=== PATIENT | male | born 1995 | race Caucasian/White ===

== ENCOUNTER 2022-03-20 21:21 | Inpatient (IN) | payer OTHER, SELFPAY ==
--- NOTE | ~2022-03-20 | CT_ITS ---
EXAMINATION: CT ABDOMEN AND PELVIS WITH CONTRAST CLINICAL INFORMATION: Abdominal pain while lifting weights COMPARISON: None TECHNIQUE: Multidetector volumetric images were obtained from the superior aspect of the liver through the pubic symphysis following administration 85 mL of Omnipaque 350 intravenous contrast. Sagittal and coronal reformatted images were obtained on the technologist's workstation. Oral contrast: No This CT examination was performed using dose optimization techniques as appropriate, variously including the following: *Automated exposure control *Adjustment of mA and/or kV according to patient size (this includes techniques or standardized protocols for targeted exams where dose is matched to indication/reason for exam; i.e. extremities or head) *Use of iterative reconstruction technique DLP: 772 mGy-cm FINDINGS: LUNG BASES: The visualized lung bases are unremarkable. LIVER, GALLBLADDER, AND BILIARY TREE: The liver is normal in size, shape, and attenuation. No focal hepatic lesion or biliary ductal dilatation is present. Gallbladder unremarkable. PANCREAS: Unremarkable. SPLEEN: Unremarkable. ADRENAL GLANDS: Unremarkable. KIDNEYS AND URETERS: The kidneys are normal in size, shape, and attenuation. No hydronephrosis, hydroureter, or calculi seen. Simple cyst in the left kidney is benign and requires no follow-up. No perinephric stranding. BLADDER: Unremarkable. GASTROINTESTINAL TRACT: Appendix is distended to 1.1 cm, thick-walled and hyperemic with associated periappendiceal fat stranding. Appendix is located medial to the cecum within the right lower quadrant. Remainder of the gastrointestinal tract unremarkable. ABDOMINAL WALL: No significant hernia is appreciated. LYMPH NODES: Normal. VASCULAR: Unremarkable. PELVIC VISCERA: Trace pelvic free fluid is reactive. OSSEOUS STRUCTURES: Unremarkable. CT/CT abdomen pelvis w con IMPRESSION: Acute uncomplicated appendicitis.
--- NOTE | ~2022-03-20 | CT_ITS ---
EXAMINATION: CT ANGIOGRAM ABDOMEN AND PELVIS CLINICAL INFORMATION: Sudden onset abdominal pain while lifting weights. COMPARISON: None TECHNIQUE: Multiple axial images were obtained through the abdomen and pelvis following the administration of 85 mL of Omnipaque 350 intravenous contrast. Images were reviewed on a dedicated 3-D workstation. This CT examination was performed using dose optimization techniques as appropriate, variously including the following: *Automated exposure control *Adjustment of mA and/or kV according to patient size (this includes techniques or standardized protocols for targeted exams where dose is matched to indication/reason for exam; i.e. extremities or head) *Use of iterative reconstruction technique DLP: 772 mGy-cm FINDINGS: VASCULAR: Normal caliber aorta. No aortic dissection or aneurysm. LUNG BASES: The visualized lung bases are unremarkable. LIVER, GALLBLADDER, AND BILIARY TREE: The liver is normal in size, shape, and attenuation. No focal hepatic lesion or biliary ductal dilatation is present. Gallbladder unremarkable. PANCREAS: Unremarkable. SPLEEN: Unremarkable. ADRENAL GLANDS: Unremarkable. KIDNEYS AND URETERS: The kidneys are normal in size, shape, and attenuation. No hydronephrosis, hydroureter, or calculi seen. Simple cyst in the left kidney is benign and requires no follow-up. No perinephric stranding. BLADDER: Unremarkable. GASTROINTESTINAL TRACT: Appendix is distended to 1.1 cm, thick-walled and hyperemic with associated periappendiceal fat stranding. Appendix is located medial to the cecum within the right lower quadrant. Remainder of the gastrointestinal tract unremarkable. ABDOMINAL WALL: No significant hernia is appreciated. LYMPH NODES: Normal. VASCULAR: Unremarkable. PELVIC VISCERA: Trace pelvic free fluid is reactive. OSSEOUS STRUCTURES: Unremarkable. CT/CT angio abdomen pelvis IMPRESSION: Acute uncomplicated appendicitis. No aortic aneurysm or dissection.
[2022-03-20 21:33] VITALS: BP 140/79; PULSE 83; RESP 18; TEMP 37.2; O2SAT 98; BMI 25.0
--- NOTE | 2022-03-20 21:36 | ECG_ITS ---
Test Reason : CHEST PAIN Blood Pressure : / mmHG Vent. Rate : 080 BPM Atrial Rate : 080 BPM P-R Int : 150 ms QRS Dur : 078 ms QT Int : 348 ms P-R-T Axes : 049 017 035 degrees QTc Int : 401 ms Normal sinus rhythm Normal ECG No previous ECGs available Referred By: Generic ED Physician Electronically Signed By:LAMINE OLSON
[2022-03-20 21:44] LABS: MANUAL DIFF FLAG NO
[2022-03-20 21:46] LABS: Basophils Percent Auto 0.2 % (0-2); Eosinophils Absolute Auto 0.2 X10*3/uL (0.0-0.4); Eosinophils Percent Auto 1.5 % (0-4); Hematocrit 44.7 % (42.0-52.0); Hemoglobin 14.8 g/dl (14.0-18.0); Imm Gran Abs Auto 0.03 X10*3/uL (0.00-0.03); Imm Gran Pct Auto 0.3 % (0.0-0.4); Lymphocytes Absolute Auto 1.6 X10*3/uL (1.2-4.9); Lymphocytes Percent Auto 15.4 % (20-40); Mean Corpuscular HGB Conc 33.1 g/dl (31.0-36.0); Mean Corpuscular Volume 84.5 fL (80.0-98.0); Mean Platelet Volume 9.6 fL (9.4-12.4); Monocytes Absolute Auto 0.7 X10*3/uL (0.1-1.2); Monocytes Percent Auto 6.7 % (2-11); Neutrophils Absolute Auto 8.1 x10*3/uL (2.0-8.3); Neutrophils Percent Auto 75.9 % (45-73); Platelet Count 245 X10*3/uL (160-400); Red Blood Count 5.29 X10*6/uL (4.60-5.80); Red Cell Distribution Width 13.2 % (11.0-16.0); White Blood Count 10.7 X10*3/uL (4.8-10.8)
[2022-03-20 22:02] LABS: Alanine Aminotransferase 39 U/L (0-40); Albumin Level 4.9 g/dL (3.5-5.0); Alkaline Phosphatase 95 U/L (39-117); Anion Gap 17 (12-20); Aspartate Amino Transferase 50 U/L (5-37); Bilirubin Direct 0.5 mg/dL (0.0-0.5); Bilirubin Total 1.3 mg/dL (0.0-1.0); Blood Urea Nitrogen 19 mg/dL (9-16); Carbon Dioxide 26 mmol/L (22-29); Chloride 103 mmol/L (96-108); Creatinine Clr Calc Pharmacy 93.2; Estimated Glomerular Filt Rate > 60; Glucose Random 112 mg/dL (60-115); Lipase 18 U/L (8-78); Potassium 3.7 mmol/L (3.3-5.1); Sodium 142 mmol/L (135-145); Total Protein 7.5 g/dL (6.5-8.0)
[2022-03-20 22:06] LABS: COVID-19 Test Negative (Negative); Troponin-I High Sensitivity 3.5 ng/L (<3.5-35.0)
[2022-03-21] VITALS (18 sets, daily range): BP systolic 100–139; BP diastolic 46–81; PULSE 60–89; RESP 9–24; TEMP 36.3–37.1; O2SAT 94–98
--- NOTE | 2022-03-21 00:20 | ED_ITS ---
HPI - Abdominal Pain General Chief Complaint: Abdominal Pain <Sandra Reno NP - Last Filed: 03/21/22 02:19> Stated Complaint: severe right sided abd pain <Sandra Reno NP - Last Filed: 03/21/22 02:19> Time Seen by Provider: 03/20/22 21:32 <Sandra Reno NP - Last Filed: 03/21/22 02:19> Source: patient <Sandra Reno NP - Last Filed: 03/21/22 02:19> Mode of arrival: ambulatory <Sandra Reno NP - Last Filed: 03/21/22 02:19> Limitations: no limitations <Sandra Reno NP - Last Filed: 03/21/22 02:19> History of Present Illness HPI narrative: 26-year-old male presents with a severe rapid onset of right lower quadrant abdominal pain that radiated to his back and rectum while lifting heavy weights. The pain still persists and it is preventing him from moving properly. He does not report any prior history of abdominal surgery, and denies chest pain or pressure, palpitations, shortness of breath, dizziness, weakness, abdominal distention, dysuria, lightheadedness, or fatigue. <Sandra Reno NP - Last Filed: 03/21/22 02:19> MD elicited complaint: abdominal pain <Sandra Reno NP - Last Filed: 03/21/22 02:19> Pertinent past history: none <Sandra Reno NP - Last Filed: 03/21/22 02:19> Onset (ago): hour(s) (Within the hour of arrival) <Sandra Reno NP - Last Filed: 03/21/22 02:19> Pain Consistency: constant <Sandra Reno NP - Last Filed: 03/21/22 02:19> Location: RLQ and suprapubic <Sandra Reno NP - Last Filed: 03/21/22 02:19> Severity: severe <Sandra Reno NP - Last Filed: 03/21/22 02:19> Pain scale (0-10): 8 <Sandra Reno NP - Last Filed: 03/21/22 02:19> Quality: aching <Sandra Reno NP - Last Filed: 03/21/22 02:19> Radiation: back and other (Rectum) <Sandra Reno NP - Last Filed: 03/21/22 02:19> Migration to: no migration <Sandra Reno NP - Last Filed: 03/21/22 02:19> Exacerbating factors: movement and other (Palpation) <Sandra Reno NP - Last Filed: 03/21/22 02:19> Relieving factors: nothing <Sandra Reno NP - Last Filed: 03/21/22 02:19> Associated symptoms: denies other symptoms <Sandra Reno NP - Last Filed: 03/21/22 02:19> Related Data Allergies/Adverse Reactions: Allergies Allergy/AdvReac Type Severity Reaction Status Date / Time carrot Allergy Itching Verified 03/20/22 21:33 pineapple Allergy Itching Verified 03/20/22 21:33 soy Allergy Itching Verified 03/20/22 21:33 strawberry Allergy Itching Verified 03/20/22 21:33 <Sandra Reno NP - Last Filed: 03/21/22 02:19> Review of Systems Review of Systems Constitutional: No Fever, No Chills ENT/Mouth: No Ear Pain, No Hoarseness, No sore throat Eyes: No Eye Pain, No Swelling, No Redness, No Foreign Body Cardiovascular: No Chest Pain, No SOB Respiratory: No Cough, No Dyspnea Gastrointestinal: No Nausea, No Vomiting, No Diarrhea, positive right lower quadrant abdominal Pain Genitourinary: No Dysuria, No Hematuria Musculoskeletal: No joint pain, No Myalgias, No Joint Swelling Skin: No Skin lacerations, No rash Neuro: No Weakness, No Numbness, No Paresthesias, No Loss of Consciousness, No Dizziness, No Headache Psych: No Anxiety/Panic, No Depression Heme/Lymph: no easy bruising, no Lymphadenopathy Endocrine: No Polyuria, No Polydipsia <Sandra Reno NP - Last Filed: 03/21/22 02:19> Yes all other systems are reviewed and are negative <TIA Adam Last Filed: 03/21/22 02:19> [facility] Past Medical History Attestation statement: The following information was validated with the patient. <Sandra Reno NP - Last Filed: 03/21/22 02:19> Source: old records reviewed <Sandra Reno NP - Last Filed: 03/21/22 02:19> Social History Social History: Social History Advance Directives: No Advance Directives Information Provided: No <Sandra Reno NP - Last Filed: 03/21/22 02:19> Physical Exam ED Vital Signs: Vital Signs - 24 hr 03/20/22 21:33 03/21/22 00:20 03/21/22 01:45 Temperature 98.9 F Pulse Rate 83 89 82 Respiratory Rate 18 19 24 H Blood Pressure 140/79 H 139/81 125/64 Pulse Oximetry 98 96 Oxygen Delivery Method Room Air Room Air BMI result Body Mass Index 25.0 <Sandra Reno NP - Last Filed: 03/21/22 02:19> Vital Signs - 24 hr 03/20/22 21:33 03/21/22 00:20 03/21/22 01:45 Temperature 98.9 F Pulse Rate 83 89 82 Respiratory Rate 18 19 24 H Blood Pressure 140/79 H 139/81 125/64 Pulse Oximetry 98 96 Oxygen Delivery Method Room Air Room Air BMI result Body Mass Index 25.0 <Laith Camarillo MD - Last Filed: 03/21/22 03:59> Appearance: Alert. Oriented X3. Moderate distress. Eyes: Pupils equal, round and reactive to light. EOMI. Sclera nonicteric. ENT: Pharynx normal. Moist mucous membranes. Neck: Normal inspection. Neck supple. CVS: Normal heart rate and rhythm. Pulses normal. Respiratory: No respiratory distress. Breath sounds normal. Abdomen: Soft and tender to right lower quadrant and suprapubic. No distention or rigidity. Skin: Skin warm and dry. Normal skin color. Normal skin turgor. Extremities: Gait well-balanced well coordinated. Neuro: No motor deficit. No sensory deficit. Cranial nerves 2-12 intact. <Sandra Reno NP - Last Filed: 03/21/22 02:19> Course Course Course Narrative: 26-year-old male presents with sudden onset of severe right lower quadrant pain radiating to his back and rectum while lifting weights. He does not have a history of prior abdominal surgeries, no family history of sudden cardiac or aneurysms. Severe tenderness noted to palpation to the right lower quadrant, and suprapubic. No rigidity or distention. Patient has sensation to all extremities no indication of cauda equina. Will order CT angio of abdomen and pelvis to rule out aneurysm, rupture, acute abdomen, intra-abdominal hematoma. Will give morphine and Zofran for pain management. Patient is visibly unco mfortable. Afebrile. Alert oriented x4. 02:14 there is a delay for the CT scan read. Sign-out to Dr. Camarillo. <Sandra Reno NP - Last Filed: 03/21/22 02:19> MDM - Abdominal Pain MDM Narrative Medical decision making narrative: Patient with right lower quadrant abdominal pain. Pain was of sudden onset and very severe. CT the abdomen pelvis shows acute appendicitis. [facility] had ordered a CTA based upon a acute onset of the pain during heavy lif ting and this was negative for any vascular abnormality. Patient was started on Zosyn 4.5 g IV and the case was discussed with Dr. Mcfadden general surgery, who is admitting the patient <Laith Camarillo MD - Last Filed: 03/21/22 03:59> Differential Diagnosis Differential diagnosis: Likely abdominal pain, aortic dissection, acute appendicitis, bowel perforation and pancreatitis <Sandra Reno NP - Last Filed: 03/21/22 02:19> Differential diagnosis narrative:: AAA, rupture <Sandra Reno NP - Last Filed: 03/21/22 02:19> Medical Records Attestation: I reviewed the patient's medical records. <Sanrda Reno NP - Last Filed: 03/21/22 02:19> Lab Data Attestation: I reviewed the patient's lab results. <Sandra Reno NP - Last Filed: 03/21/22 02:19> Result diagrams: : 03/20/22 21:40 03/20/22 21:40 <Sandra Reno NP - Last Filed: 03/21/22 02:19> Labs: Lab Results 03/20/22 03/20/22 03/20/22 Range/Units 21:40 21:40 21:40 WBC 10.7 (4.8-10.8) X10*3/uL RBC 5.29 (4.60-5.80) X10*6/uL Hgb 14.8 (14.0-18.0) g/dl Hct 44.7 (42.0-52.0) % MCV 84.5 (80.0-98.0) fL MCH 28.0 (27.0-33.0) pg MCHC 33.1 (31.0-36.0) g/dl RDW 13.2 (11.0-16.0) % Plt Count 245 (160-400) X10*3/uL MPV 9.6 (9.4-12.4) fL Immature Gran % (Auto) 0.3 (0.0-0.4) % Neut % (Auto) 75.9 H (45-73) % Lymph % (Auto) 15.4 L (20-40) % [place] % (Auto) 6.7 (2-11) % Eos % (Auto) 1.5 (0-4) % Baso % (Auto) 0.2 (0-2) % Lymph # (Auto) 1.6 (1.2-4.9) X10*3/uL [place] # (Auto) 0.7 (0.1-1.2) X10*3/uL Eos # (Auto) 0.2 (0.0-0.4) X10*3/uL Baso # (Auto) 0.0 (0.0-0.2) X10*3/uL Abs Immat Gran (auto) 0.03 (0.00-0.03) X10*3/uL Absolute Neuts (auto) 8.1 (2.0-8.3) x10*3/uL Absolute Nucleated RBC 0.000 (0.0-0.012) X10*3/uL Nucleated RBC % (auto) 0.0 (0.0-0.2) /100WBC Sodium 142 (135-145) mmol/L Potassium 3.7 (3.3-5.1) mmol/L Chloride 103 (96-108) mmol/L Carbon Dioxide 26 (22-29) mmol/L Anion Gap 17 (12-20) BUN 19 H (9-16) mg/dL Creatinine 1.24 (0.5-1.4) mg/dL Estim Creat Clear Calc 93.2 Estimated GFR > 60 Random Glucose 112 (60-115) mg/dL Calcium 10.0 (8.4-10.2) mg/dL Total Bilirubin 1.3 H (0.0-1.0) mg/dL Direct Bilirubin 0.5 (0.0-0.5) mg/dL AST 50 H (5-37) U/L ALT 39 (0-40) U/L Alkaline Phosphatase 95 (39-117) U/L Troponin I High Sens 3.5 (<3.5-35.0) ng/L Total Protein 7.5 (6.5-8.0) g/dL Albumin 4.9 (3.5-5.0) g/dL Lipase 18 (8-78) U/L Urine Color Urine Appearance Urine pH (5.0-8.0) Ur Specific [place] (1.005-1.025) Urine Protein (Neg-Trace) mg/dL Urine Glucose (UA) (Negative) mg/dL Urine Ketones (Negative) mg/dL Urine Blood (Negative) Urine Nitrite (Negative) Ur Leukocyte Esterase (Negative) COVID-19 (UZMA) (Negative) COVID-19 Clin Com 03/20/22 03/21/22 Range/Units 21:40 01:53 WBC (4.8-10.8) X10*3/uL RBC (4.60-5.80) X10*6/uL Hgb (14.0-18.0) g/dl Hct (42.0-52.0) % MCV (80.0-98.0) fL MCH (27.0-33.0) pg MCHC (31.0-36.0) g/dl RDW (11.0-16.0) % Plt Count (160-400) X10*3/uL MPV (9.4-12.4) fL Immature Gran % (Auto) (0.0-0.4) % Neut % (Auto) (45-73) % Lymph % (Auto) (20-40) % [place] % (Auto) (2-11) % Eos % (Auto) (0-4) % Baso % (Auto) (0-2) % Lymph # (Auto) (1.2-4.9) X10*3/uL [place] # (Auto) (0.1-1.2) X10*3/uL Eos # (Auto) (0.0-0.4) X10*3/uL Baso # (Auto) (0.0-0.2) X10*3/uL Abs Immat Gran (auto) (0.00-0.03) X10*3/uL Absolute Neuts (auto) (2.0-8.3) x10*3/uL Absolute Nucleated RBC (0.0-0.012) X10*3/uL Nucleated RBC % (auto) (0.0-0.2) /100WBC Sodium (135-145) mmol/L Potassium (3.3-5.1) mmol/L Chloride (96-108) mmol/L Carbon Dioxide (22-29) mmol/L Anion Gap (12-20) BUN (9-16) mg/dL Creatinine (0.5-1.4) mg/dL Estim Creat Clear Calc Estimated GFR Random Glucose (60-115) mg/dL Calcium (8.4-10.2) mg/dL Total Bilirubin (0.0-1.0) mg/dL Direct Bilirubin (0.0-0.5) mg/dL AST (5-37) U/L ALT (0-40) U/L Alkaline Phosphatase (39-117) U/L Troponin I High Sens (<3.5-35.0) ng/L Total Protein (6.5-8.0) g/dL Albumin (3.5-5.0) g/dL Lipase (8-78) U/L Urine Color Yellow Urine Appearance Clear Urine pH 5.5 (5.0-8.0) Ur Specific [place] >= 1.030 H (1.005-1.025) Urine Protein Negative (Neg-Trace) mg/dL Urine Glucose (UA) Negative (Negative) mg/dL Urine Ketones Trace (Negative) mg/dL Urine Blood Negative (Negative) Urine Nitrite Negative (Negative) Ur Leukocyte Esterase Negative (Negative) COVID-19 (UZMA) Negative (Negative) COVID-19 Clin Com See Note <Sandra Reno NP - Last Filed: 03/21/22 02:19> Lab Results 0803/20/22 03/20/22 Range/Units 21:40 21:40 21:40 WBC 10.7 (4.8-10.8) X10*3/uL RBC 5.29 (4.60-5.80) X10*6/uL Hgb 14.8 (14.0-18.0) g/dl Hct 44.7 (42.0-52.0) % MCV 84.5 (80.0-98.0) fL MCH 28.0 (27.0-33.0) pg MCHC 33.1 (31.0-36.0) g/dl RDW 13.2 (11.0-16.0) % Plt Count 245 (160-400) X10*3/uL MPV 9.6 (9.4-12.4) fL Immature Gran % (Auto) 0.3 (0.0-0.4) % Neut % (Auto) 75.9 H (45-73) % Lymph % (Auto) 15.4 L (20-40) % [place] % (Auto) 6.7 (2-11) % Eos % (Auto) 1.5 (0-4) % Baso % (Auto) 0.2 (0-2) % Lymph # (Auto) 1.6 (1.2-4.9) X10*3/uL [place] # (Auto) 0.7 (0.1-1.2) X10*3/uL Eos # (Auto) 0.2 (0.0-0.4) X10*3/uL Baso # (Auto) 0.0 (0.0-0.2) X10*3/uL Abs Immat Gran (auto) 0.03 (0.00-0.03) X10*3/uL Absolute Neuts (auto) 8.1 (2.0-8.3) x10*3/uL Absolute Nucleated RBC 0.000 (0.0-0.012) X10*3/uL Nucleated RBC % (auto) 0.0 (0.0-0.2) /100WBC Sodium 142 (135-145) mmol/L Potassium 3.7 (3.3-5.1) mmol/L Chloride 103 (96-108) mmol/L Carbon Dioxide 26 (22-29) mmol/L Anion Gap 17 (12-20) BUN 19 H (9-16) mg/dL Creatinine 1.24 (0.5-1.4) mg/dL Estim Creat Clear Calc 93.2 Estimated GFR > 60 Random Glucose 112 (60-115) mg/dL Calcium 10.0 (8.4-10.2) mg/dL Total Bilirubin 1.3 H (0.0-1.0) mg/dL Direct Bilirubin 0.5 (0.0-0.5) mg/dL AST 50 H (5-37) U/L ALT 39 (0-40) U/L Alkaline Phosphatase 95 (39-117) U/L Troponin I High Sens 3.5 (<3.5-35.0) ng/L Total Protein 7.5 (6.5-8.0) g/dL Albumin 4.9 (3.5-5.0) g/dL Lipase 18 (8-78) U/L Urine Color Urine Appearance Urine pH (5.0-8.0) Ur Specific [place] (1.005-1.025) Urine Protein (Neg-Trace) mg/dL Urine Glucose (UA) (Negative) mg/dL Urine Ketones (Negative) mg/dL Urine Blood (Negative) Urine Nitrite (Negative) Ur Leukocyte Esterase (Negative) COVID-19 (UZMA) (Negative) COVID-19 Clin Com 03/20/22 03/21/22 Range/Units 21:40 01:53 WBC (4.8-10.8) X10*3/uL RBC (4.60-5.80) X10*6/uL Hgb (14.0-18.0) g/dl Hct (42.0-52.0) % MCV (80.0-98.0) fL MCH (27.0-33.0) pg MCHC (31.0-36.0) g/dl RDW (11.0-16.0) % Plt Count (160-400) X10*3/uL MPV (9.4-12.4) fL Immature Gran % (Auto) (0.0-0.4) % Neut % (Auto) (45-73) % Lymph % (Auto) (20-40) % [place] % (Auto) (2-11) % Eos % (Auto) (0-4) % Baso % (Auto) (0-2) % Lymph # (Auto) (1.2-4.9) X10*3/uL [place] # (Auto) (0.1-1.2) X10*3/uL Eos # (Auto) (0.0-0.4) X10*3/uL Baso # (Auto) (0.0-0.2) X10*3/uL Abs Immat Gran (auto) (0.00-0.03) X10*3/uL Absolute Neuts (auto) (2.0-8.3) x10*3/uL Absolute Nucleated RBC (0.0-0.012) X10*3/uL Nucleated RBC % (auto) (0.0-0.2) /100WBC Sodium (135-145) mmol/L Potassium (3.3-5.1) mmol/L Chloride (96-108) mmol/L Carbon Dioxide (22-29) mmol/L Anion Gap (12-20) BUN (9-16) mg/dL Creatinine (0.5-1.4) mg/dL Estim Creat Clear Calc Estimated GFR Random Glucose (60-115) mg/dL Calcium (8.4-10.2) mg/dL Total Bilirubin (0.0-1.0) mg/dL Direct Bilirubin (0.0-0.5) mg/dL AST (5-37) U/L ALT (0-40) U/L Alkaline Phosphatase (39-117) U/L Troponin I High Sens (<3.5-35.0) ng/L Total Protein (6.5-8.0) g/dL Albumin (3.5-5.0) g/dL Lipase (8-78) U/L Urine Color Yellow Urine Appearance Clear Urine pH 5.5 (5.0-8.0) Ur Specific [place] >= 1.030 H (1.005-1.025) Urine Protein Negative (Neg-Trace) mg/dL Urine Glucose (UA) Negative (Negative) mg/dL Urine Ketones Trace (Negative) mg/dL Urine Blood Negative (Negative) Urine Nitrite Negative (Negative) Ur Leukocyte Esterase Negative (Negative) COVID-19 (UZMA) Negative (Negative) COVID-19 Clin Com See Note <Laith Camarillo MD - Last Filed: 03/21/22 03:59> Imaging Data CT angio abdomen pelvis: Radiologist's impression: MPRESSION: Acute uncomplicated appendicitis. No aortic aneurysm or dissection. <Laith Camarillo MD - Last Filed: 03/21/22 03:59> CT abdomen and pelvis: Radiologist's impression: IMPRESSION: Acute uncomplicated appendicitis. <Laith Camarillo MD - Last Filed: 03/21/22 03:59> Discharge Plan Discharge Clinical Impression: Abdominal pain, Acute appendicitis <Sandra Reno NP - Last Filed: 03/21/22 02:19> Patient Disposition: Still a Patient <Sandra Reno NP - Last Filed: 03/21/22 02:19>
[2022-03-21] MEDS: Morphine Sulfate 4 MG/ML CARTRIDGE IVPUSH (00:48)
[2022-03-21] MEDS: ondansetron HCL 4 MG/2 ML VIAL IVPUSH ×2 (00:48→04:20)
[2022-03-21] MEDS: iohexoL 350 MG/ML 100 ML INFUS..BTL IV (01:41)
[2022-03-21 02:06] LABS: Appearance Urine Clear; Color Urine Yellow; Glucose Urine UA Negative (Negative); Leukocyte Esterase Urine Negative (Negative); Nitrite Urine Negative (Negative); PH 5.5 (5.0-8.0); Specific Gravity - Urine >= 1.030 (1.005-1.025); Urine Blood Negative (Negative); Urine Ketones Trace mg/dL (Negative); Urine Protein Negative (Neg-Trace)
[2022-03-21] MEDS: Piperacillin Sodium/Tazobactam 4.5 GM in 0.9 % Sodium Chloride 100 ML IV (02:49)
[2022-03-21] MEDS: 0.9 % Sodium Chloride 1,000 ML 999 ML IV (02:50)
--- NOTE | 2022-03-21 03:57 | P.HPGS_ITS ---
History of Present Illness History of Present Illness Date of Service: 03/21/22 Chief complaint: Acute appendicitis Narrative: Sid Munoz is a 26 year old male presenting with complaints of abdominal pain in the right lower quadrant. The pain began while working out initially felt like a muscle pull. The pain was mainly in periumbilical location initially but over the next hour radiated to the right lower quadrant. The pain is not so bad while lying still but increases with movement or walking. He reports some nausea and anorexia but denies vomiting. He had a period of chills and sweats prior to coming to the emergency department. In the emergency department he was noted to be tender in the right lower quadrant. CT abdomen and pelvis as well as angio CT was significant for acute appendicitis without perforation. Laboratories revealed normal WBC. He is admitted to the surgical service for management of his acute appendicitis. Review of Systems Review of Systems: Yes all other systems are reviewed and are negative Constitutional: Constitutional: Denies chills, Denies fever(s), Denies headache(s), Denies poor appetite and Denies weakness ENT: Denies headache(s) Cardiovascular: Cardiovascular: Denies chest pain, Denies irregular heart rhythm, Denies palpitations and Denies dyspnea Respiratory: Respiratory: Denies cough, Denies excessive phlegm production and Denies dyspnea Gastrointestinal: Gastrointestinal: Reports abdominal pain, Denies bloating, Denies change in bowel habits, Denies constipation, Denies heartburn, Denies diarrhea, Denies nausea and Denies vomiting Genitourinary: Genitourinary: Denies difficulty urinating and Denies urinary frequency Musculoskeletal: Musculoskeletal: Denies back pain, Denies muscle weakness and Denies numbness Integumentary/Breasts: Skin/Breast: Denies changing lesions and Denies unusual bruising Neurologic: Denies headache(s), Denies numbness, Denies paresthesias and Denies weakness Psychiatric: Psychiatric: Denies anxiety and Denies depression Endocrine: Endocrine: Denies palpitations Hematologic/Lymphatic: Hematologic/Lymphatic: Denies lymphadenopathy FOR[facility]LY [facility] Social History Social History Advance Directives: No Advance Directives Information Provided: No Meds Allergies Allergy/AdvReac Type Severity Reaction Status Date / Time carrot Allergy Itching Verified 03/20/22 21:33 pineapple Allergy Itching Verified 03/20/22 21:33 soy Allergy Itching Verified 03/20/22 21:33 strawberry Allergy Itching Verified 03/20/22 21:33 Active Medications: Current Medications Acetaminophen (Acetaminophen 325 Mg Tablet) 650 mg PO Q6H PRN PRN Reason: Pain, Mild (Pain Scale 1-3) Hydromorphone HCl (Hydromorphone Hcl 1 Mg/Ml Syringe) 0.5 mg IVPUSH Q4H PRN; Protocol PRN Reason: Pain, Severe (Pain Scale 7-10) Dextrose/Lactated Ringer's (D5lr) 1,000 mls @ 125 mls/hr IVCONT .Q8H RADHA Piperacillin Sod/Tazobactam (Sod 3.375 gm/ Sodium Chloride) 50 mls @ 100 mls/hr IV Q6H RADHA Ondansetron HCl (Ondansetron Hcl 4 Mg/2 Ml Vial) 4 mg IVPUSH QID PRN PRN Reason: Nausea Oxycodone HCl (Oxycodone Hcl Immed Release 5 Mg Tablet) 5 mg PO Q6H PRN PRN Reason: Pain, Moderate (Pain Scale 4-6 Sodium Chloride (0.9 % Sodium Chloride Flush 3 Ml Syringe) 3 ml IVFLUSH QSHIFT RADHA Zolpidem Tartrate (Zolpidem Tartrate 5 Mg Tablet) 5 mg PO BEDTIME PRN PRN Reason: Insomnia Physical Exam Vital Signs: Vital Signs: Last Vital Signs Temp 98.9 F 03/20/22 21:33 Pulse 82 03/21/22 01:45 Resp 24 H 03/21/22 01:45 BP 125/64 03/21/22 01:45 Pulse Ox 96 03/21/22 00:20 O2 Del Method 03/21/22 01:45 BMI result Body Mass Index 25.0 Const: General: cooperative and no acute distress Nutritional Appearance: well nourished Orientation/consciousness: patient oriented x3 Limitations: no limitations HEENT: Head: Yes normocephalic and Yes atraumatic Ears: hearing grossly normal bilaterally Resp: Effort & Inspection: normal respiratory effort, no audible wheezes, no cough and no respiratory distress Cardio: Jugular venous distension: no JVD GI: Inspection: Yes normal to inspection Palpation (GI): Soft to palpation, Tenderness to palpation present (GI) in the RLQ, at McBurney's point, with rebound tenderness and Rovsing's sign positive, no guarding and not rigid Percussion: Yes normal to percussion Auscultation: normal bowel sounds Rectal Exam - Male: Yes deferred Skin: Other: Warm, dry, no rash Neuro: General: patient oriented x3 Extrem: General: Yes no clubbing, cyanosis or edema Results Results Labs: Short CBC 03/20/22 Range/Units 21:40 WBC 10.7 (4.8-10.8) X10*3/uL Hgb 14.8 (14.0-18.0) g/dl Hct 44.7 (42.0-52.0) % Plt Count 245 (160-400) X10*3/uL BMP 03/20/22 21:40 Sodium 142 Potassium 3.7 Chloride 103 Carbon Dioxide 26 BUN 19 H Creatinine 1.24 Calcium 10.0 Liver Function 03/20/22 Range/Units 21:40 Total Bilirubin 1.3 H (0.0-1.0) mg/dL Direct Bilirubin 0.5 (0.0-0.5) mg/dL AST 50 H (5-37) U/L ALT 39 (0-40) U/L Alkaline Phosphatase 95 (39-117) U/L Albumin 4.9 (3.5-5.0) g/dL Urine 03/21/22 Range/Units 01:53 Urine Color Yellow Urine Appearance Clear Urine pH 5.5 (5.0-8.0) Ur Specific [place] >= 1.030 H (1.005-1.025) Urine Protein Negative (Neg-Trace) mg/dL Urine Glucose (UA) Negative (Negative) mg/dL Assessment and Plan (1) Acute appendicitis: Status: Acute Plan 26-year-old male patient, previously healthy now presenting with acute onset of right lower quadrant abdominal pain found in the emergency department to have WBC however a CT which revealed thickened appendix suggestive of acute appendicitis. We discussed the options non operative management with IV antibiotics verses laparoscopic appendectomy. After discussion of the procedure, risks, and alternatives, he consents to a laparoscopic or possible open appendectomy. He has been added onto the operative schedule for later today. Quality Stroke Does the patient have a stroke diagnosis?: No VTE Prior VTE?: No VTE Risk Level:: Surgical - low VTE Device Contraindication: N/A - Device Ordered VTE Drug Contraindication: Treatment Not Indicated Procedures Date of Service Date of Service: 03/21/22
[2022-03-21] MEDS: 0.9 % Sodium Chloride Flush 3 ML SYRINGE IVFLUSH (04:15)
[2022-03-21] MEDS: Dextrose 5 % and Lactated Ring 1,000 ML 125 ML IVCONT ×3 (04:15→22:52)
[2022-03-21] MEDS: HYDROmorphone HCl 1 MG/ML SYRINGE 0.5 MG IVPUSH ×2 (04:20→08:52)
--- NOTE | 2022-03-21 07:24 | PC.NURSE ---
Handoff received. Pt ao x 4. Family member at bedside. States minimal pain at this time, 10/30. D5LR at 25ml/hr on r ac. Able to ambulate to the bathroom. Breathing is even and unlabored. Pt aware of plan of care.
--- NOTE | 2022-03-21 08:06 | PHA.MEDREC ---
Pharmacy Consult ? Medication Reconciliation Pharmacy has completed the medication reconciliation. Patient only takes OTC supplement and vitamin. Maricarmen Vinson, MelissaD
--- NOTE | 2022-03-21 08:10 | PC.NURSE ---
report given to sss
[2022-03-21] MEDS: Piperacillin Sodium/Tazobactam 3.375 GM in 0.9 % Sodium Chloride 50 ML IV ×3 (08:59→22:51)
[2022-03-21] MEDS: oxyCODONE HCl Immed Release 5 MG TABLET PO ×2 (10:42→22:49)
--- NOTE | 2022-03-21 11:40 | MHC.CM.PN ---
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
--- NOTE | 2022-03-21 13:54 | P.CONAN_ITS ---
HPI - Anesthesia Eval Consult details Narrative: Acute Appendicitis PMFSH Active Problems Active Problems: All Active Problems (Updated 03/21/22 @ 11:01 by Dana Kingsley RN) Abdominal pain (Acute) Acute appendicitis (Acute) Past Medical History Medical History Alopecia Psoriasis Family History Family history of problems with anesthesia: No Surgical History Surgical History History of ear surgery [place] teeth extracted History of Problems with Anesthesia: No Social History Social History Patient Tobacco Use Status: Never used Tobacco service: No Current occupational status: employed Meds Allergies Allergy/AdvReac Type Severity Reaction Status Date / Time carrot Allergy Itching Verified 03/21/22 11:01 pineapple Allergy Itching Verified 03/21/22 11:01 soy Allergy Itching Verified 03/21/22 11:01 strawberry Allergy Itching Verified 03/21/22 11:01 Active Medications: Current Medications Acetaminophen (Acetaminophen 325 Mg Tablet) 650 mg PO Q6H PRN PRN Reason: Pain, Mild (Pain Scale 1-3) Hydromorphone HCl (Hydromorphone Hcl 1 Mg/Ml Syringe) 0.5 mg IVPUSH Q4H PRN; Protocol PRN Reason: Pain, Severe (Pain Scale 7-10) Last Admin: 03/21/22 08:52 Dose: 0.5 mg Dextrose/Lactated Ringer's (D5lr) 1,000 mls @ 125 mls/hr IVCONT .Q8H RADHA Last Admin: 03/21/22 04:15 Dose: 125 mls/hr Piperacillin Sod/Tazobactam (Sod 3.375 gm/ Sodium Chloride) 50 mls @ 100 mls/hr IV Q6H RADHA Last Infusion: 03/21/22 09:29 Dose: Infused Ondansetron HCl (Ondansetron Hcl 4 Mg/2 Ml Vial) 4 mg IVPUSH Q8H PRN PRN Reason: Nausea Last Admin: 03/21/22 04:20 Dose: 4 mg Oxycodone HCl (Oxycodone Hcl Immed Release 5 Mg Tablet) 5 mg PO Q6H PRN PRN Reason: Pain, Moderate (Pain Scale 4-6 Last Admin: 03/21/22 10:42 Dose: 5 mg Sodium Chloride (0.9 % Sodium Chloride Flush 3 Ml Syringe) 3 ml IVFLUSH QSHIFT RADHA Last Admin: 03/21/22 04:15 Dose: 3 ml Zolpidem Tartrate (Zolpidem Tartrate 5 Mg Tablet) 5 mg PO BEDTIME PRN PRN Reason: Insomnia Home Medications Medication Instructions Recorded Confirmed Last Taken Type Probiotic 1 cap PO DAILY 03/21/22 03/21/22 Unknown History bismuth subsalicylate 262 mg/15 mL 524 mg PO Q30M PRN gi upset 03/21/22 03/21/22 03/20/22 History oral suspension (Pepto-Bismol) hydrocortisone 1 % topical cream 1 appl topical TID PRN psorasis 03/21/22 03/21/22 Unknown History loratadine 10 mg tablet (Claritin) 10 mg PO DAILY 03/21/22 03/21/22 Unknown History minoxidil 1 tab PO DAILY 03/21/22 03/21/22 Unknown History multivitamin 1 tab PO DAILY 03/21/22 03/21/22 Unknown History omega 5-mja-aah-fish oil 1,000 mg 1 cap PO DAILY 03/21/22 03/21/22 Unknown History (120 mg-180 mg) capsule (Fish Oil) vitamin B complex 1 tab PO DAILY 03/21/22 03/21/22 Unknown History zinc acetate 50 mg (zinc) capsule 50 mg PO DAILY 03/21/22 03/21/22 Unknown History Exam Exam Date and Time: March 21, 2022 1354 Height,Weight and Vital Signs: Height 5 ft 10 in Weight 78.925 kg Last Vital Signs Temp 98.7 F 03/21/22 07:53 Pulse 89 03/21/22 07:53 Resp 20 03/21/22 07:53 BP 111/67 03/21/22 07:53 Pulse Ox 98 03/21/22 07:53 O2 Del Method 03/21/22 07:53 Pertinent Lab Results Pertinent Lab Results: Laboratory Tests 03/20/22 03/20/22 03/20/22 21:40 21:40 21:40 WBC 10.7 RBC 5.29 Hgb 14.8 Hct 44.7 MCV 84.5 MCH 28.0 MCHC 33.1 RDW 13.2 Plt Count 245 MPV 9.6 Immature Gran % (Auto) 0.3 Neut % (Auto) 75.9 H Lymph % (Auto) 15.4 L Wayne % (Auto) 6.7 Eos % (Auto) 1.5 Baso % (Auto) 0.2 Lymph # (Auto) 1.6 Wayne # (Auto) 0.7 Eos # (Auto) 0.2 Baso # (Auto) 0.0 Abs Immat Gran (auto) 0.03 Absolute Neuts (auto) 8.1 Absolute Nucleated RBC 0.000 Nucleated RBC % (auto) 0.0 Sodium 142 Potassium 3.7 Chloride 103 Carbon Dioxide 26 Anion Gap 17 BUN 19 H Creatinine 1.24 Estim Creat Clear Calc 93.2 Estimated GFR > 60 Random Glucose 112 Calcium 10.0 Total Bilirubin 1.3 H Direct Bilirubin 0.5 AST 50 H ALT 39 Alkaline Phosphatase 95 Troponin I High Sens 3.5 Total Protein 7.5 Albumin 4.9 Lipase 18 Urine Color Urine Appearance Urine pH Ur Specific [place] Urine Protein Urine Glucose (UA) Urine Ketones Urine Blood Urine Nitrite Ur Leukocyte Esterase COVID-19 (UZMA) COVID-Yostro Com 03/20/22 03/21/22 21:40 01:53 WBC RBC Hgb Hct MCV MCH MCHC RDW Plt Count MPV Immature Gran % (Auto) Neut % (Auto) Lymph % (Auto) Wayne % (Auto) Eos % (Auto) Baso % (Auto) Lymph # (Auto) Wayne # (Auto) Eos # (Auto) Baso # (Auto) Abs Immat Gran (auto) Absolute Neuts (auto) Absolute Nucleated RBC Nucleated RBC % (auto) Sodium Potassium Chloride Carbon Dioxide Anion Gap BUN Creatinine Estim Creat Clear Calc Estimated GFR Random Glucose Calcium Total Bilirubin Direct Bilirubin AST ALT Alkaline Phosphatase Troponin I High Sens Total Protein Albumin Lipase Urine Color Yellow Urine Appearance Clear Urine pH 5.5 Ur Specific [place] >= 1.030 H Urine Protein Negative Urine Glucose (UA) Negative Urine Ketones Trace Urine Blood Negative Urine Nitrite Negative Ur Leukocyte Esterase Negative COVID-19 (UZMA) Negative COVID-19 Clin Com See Note Airway Mallampati Class: II TM Dist: >3cm Neck ROM: Full Loose/Missing/Broken Teeth: No Heart: [id number] Lungs: cta b/l Assessment and Plan Assessment Anesthesia Assessment: Anesthesia Plan Discussed and Chart Reviewed Final Anesthetic Review Family History of Problems with Anesthesia: No History of Problems with Anesthesia: No NPO: Yes ASA Class: I and Emergency Final Preanesthetic Review: No Changes in Pt Med Stat, Meds/Allgs Chart Reviewed, Consent Obtained/Reviewed and Anes Risks/Benef Reviewed Patient Risk: Intermediate Procedure Risk: Intermediate Assessment/Block/Sedation in SS: Assess/Block/Sedation-SS Anesthetic Plan Anesthetic Plan: GA and Agree w/ Assess. and Plan Disposition: Standard PACU
--- NOTE | 2022-03-21 15:06 | W.PM.OPN ---
Operative Note Operative Note Date of Service: 03/21/22 Narrative: Preoperative diagnosis: Acute appendicitis Postoperative diagnosis: Same Procedure: Laparoscopic appendectomy Surgeon: Rocco Mcfadden MD Mail Officer:DAVE Red Anesthesia: General endotracheal Indications for procedure:26 years old male with right lower quadrant abdominal pain found to have acute appendicitis by CT Operative findings:Acute appendicitis with turbid fluid surrounding the appendix Specimen:Appendix Estimated blood loss:1 ml Complications: none Procedure details: Patient was brought to the OR and placed in a supine position. After administering general anesthesia the patient's abdomen was prepped with ChloraPrep and draped in a sterile fashion. A surgical time-out was called and consent confirmed. Patient received preoperative antibiotics and Venodyne boots were in place. Local anesthesia consisting of 0.75% Sensorcaine with epinephrine was infiltrated in periumbilical region. A 5 mm incision was made below the umbilicus and carried down through subcutaneous tissue. A Veress needle was then inserted while elevating abdominal cavity with towel clips. After a positive drop test the abdomen was insufflated to a pressure of 15 mm of mercury. The Veress needle was removed and a 5 mm trocar inserted. The camera was then inserted in the abdomen explored. A 2nd 5 mm trocars placed in the lower midline. A 12 mm trocar was then placed in the left lower quadrant. The patient was then placed in a Trendelenburg position and rotated to the left. The appendix was identified in the right lower quadrant and brought up using blunt dissecting clamps. The mesentery of the appendix was then divided using the LigaSure. The appendiceal artery was cauterized and divided using the LigaSure. Dissection was continued down to the base of the cecum. An Endo-VIVIENNE stapler with a purple reload was then used to divide the appendix at the base with the cecum. The appendix was then placed in Endo-Catch bag and brought out through the left lower quadrant incision. The abdomen was then irrigated with saline solution and suctioned dry. Wounds were checked for hemostasis. CO2 was then evacuated from the abdominal cavity and all trocars removed. Fascia was closed in the left lower quadrant incision using a [id number] 0 Polysorb suture. Skin was closed at all incisions using a subcuticular 4-0 Polysorb suture. Steri-Strips 2 x 2 gauze and Tegaderm were then applied. The patient tolerated the procedure well. Sponge, instrument, needle counts reported as correct. The patient was transferred to PACU in stable condition.
[2022-03-22] MEDS: oxyCODONE HCl Immed Release 5 MG TABLET PO (05:41)
[2022-03-22] MEDS: Dextrose 5 % and Lactated Ring 1,000 ML 125 ML IVCONT (05:42)
[2022-03-22] MEDS: Piperacillin Sodium/Tazobactam 3.375 GM in 0.9 % Sodium Chloride 50 ML IV (05:42)
--- NOTE | 2022-03-22 07:00 | HO.POSTANES ---
Post Anesthesia Evaluation Post Anesthesia Evaluation Vital Signs: Vital Signs Temp Pulse Resp BP Pulse Ox O2 Del Method 03/21/22 23:49 98.5 F 74 16 130/57 L 96 Room Air 03/21/22 19:53 98 F 66 16 112/52 L 96 Room Air Anesthesia: General Endotracheal-GETA Mental Status: Awake Pain Control: Satisfactory Nausea/Vomiting: None Hydration: Adequate Anesthesia-Related Issues: No Anes. Related Issues
[2022-03-22 08:00] VITALS: BP 105/57; PULSE 67; RESP 18; TEMP 36.7; O2SAT 98
--- NOTE | 2022-03-22 13:18 | PM.PNGS ---
Subjective Subjective Date of Service: 03/22/22 Interval history: Patient reports some discomfort in the right lower quadrant. He was able to tolerate some food had not gotten out of bed yet. He denies nausea or vomiting. Physical Exam Vital Signs: Vital Signs: Last Vital Signs Temp 98.1 F 03/22/22 08:00 Pulse 67 03/22/22 08:00 Resp 18 03/22/22 08:00 BP 105/57 L 03/22/22 08:00 Pulse Ox 98 03/22/22 08:00 O2 Del Method 03/22/22 08:00 O2 Flow Rate 2 03/21/22 15:42 BMI result Body Mass Index 25.0 Const: General: healthy appearing and no acute distress Nutritional Appearance: well nourished Orientation/consciousness: patient oriented x3 Limitations: no limitations Resp: Effort & Inspection: normal respiratory effort, no audible wheezes, no cough and no respiratory distress GI: Other: Trocar incisions are clean, dry, and intact without redness or discharge. Abdomen is otherwise soft and nondistended. Skin: General skin exam: no rashes or lesions noted Neuro: General: patient oriented x3 Extrem: General: Yes no clubbing, cyanosis or edema Objective Data Active Medications Acetaminophen (Acetaminophen 325 Mg Tablet) 650 mg PO Q6H PRN PRN Reason: Pain, Mild (Pain Scale 1-3) Hydromorphone HCl (Hydromorphone Hcl 1 Mg/Ml Syringe) 0.5 mg IVPUSH Q4H PRN; Protocol PRN Reason: Pain, Severe (Pain Scale 7-10) Last Admin: 03/21/22 08:52 Dose: 0.5 mg Documented By: STEPHON Ondansetron HCl (Ondansetron Hcl 4 Mg/2 Ml Vial) 4 mg IVPUSH Q8H PRN PRN Reason: Nausea Last Admin: 03/21/22 04:20 Dose: 4 mg Documented By: NIKITA Oxycodone HCl (Oxycodone Hcl Immed Release 5 Mg Tablet) 5 mg PO Q6H PRN PRN Reason: Pain, Moderate (Pain Scale 4-6 Last Admin: 03/22/22 05:41 Dose: 5 mg Documented By: BARBIE Sodium Chloride (0.9 % Sodium Chloride Flush 3 Ml Syringe) 3 ml IVFLUSH [facility] Last Admin: 03/22/22 07:16 Dose: Not Given Documented By: COTEMA Non-Admin Reason: IV Running Zolpidem Tartrate (Zolpidem Tartrate 5 Mg Tablet) 5 mg PO BEDTIME PRN PRN Reason: Insomnia Labs CBC & Chem 7: 03/20/22 21:40 03/20/22 21:40 Procedures Date of Service Date of Service: 03/22/22 Progress Note: A&P Assessment and plan (1) Acute appendicitis: Status: Acute Plan 26-year-old male patient presenting with acute appendicitis, S/P laparoscopic appendectomy, pod 1. He tolerated the procedure well is wounds are clean and intact. I will check back later this afternoon to see if he is ready for discharge to home. Time Spent With Patient Time: Total time spent is greater than 50% in coordination of care (as documented) at patient's floor/unit and/or counseling patient: Quality Stroke Does the patient have a stroke diagnosis?: No VTE Prior VTE?: No VTE Risk Level:: Surgical - low VTE Device Contraindication: N/A - Device Ordered VTE Drug Contraindication: Treatment Not Indicated
--- NOTE | 2022-03-22 13:56 | PM.DS ---
DS: Providers Provider Date of Service: 03/22/22 Date of admission: 03/21/22 03:49 Date of discharge: 03/22/22 Primary care physician: Jorden Physician Admitting clinician: Rocco Mcfadden Discharging clinician: Rocco Mcfadden DS: Diagnosis Discharge Diagnosis (1) Acute appendicitis: Status: Acute DS: Summary Hospital Course Hospital Course: 26-year-old male patient presenting to the emergency department 03/21/2022 with complaints of abdominal pain in the right lower quadrant. The pain began on 03/20/2022 while working out in the gym. Initially thought he pulled an abdominal muscle however the pain persisted in seem to increase with activity. When the pain did not improve he subsequently presented to the emergency department for further evaluation. In the emergency department his WBC was noted to be normal however on examination he was found to be tender in the right lower quadrant. A CT abdomen and pelvis revealed a thickened appendix with inflammatory changes suggestive of acute appendicitis. He was subsequently admitted to the surgical service for further management. He was taken to the OR on 03/21/2022 for laparoscopic appendectomy. Operative findings were consistent with acute appendicitis. There is a small amount of turbid fluid surrounding the appendix but no evidence of perforation. He tolerated the procedure well and remained hemodynamically stable. He was started on a regular diet on the evening of the surgery. He tolerated this well without nausea or vomiting. He was able to ambulate without difficulty as well. Pod 1 the patient is reasonably comfortable on oral pain medications. His vital signs were stable he was afebrile. His wounds were clean, dry, and intact. He was tolerating a regular diet without nausea or vomiting. Patient is to be discharged to home in stable condition. He was instructed to avoid lifting greater than 10 lb for the next 2 weeks.. He should also avoid for the next week. Resume a regular diet without restrictions. I have asked him to return to my office in approximately 1 week for wound check. He should call the office for fever, chills, increased abdominal pain, nausea, vomiting, or other concerns. Expressed understanding and agrees with the plan. Status at Discharge Functional status at discharge: independent ambulation Overall status at discharge: patient is back to baseline Time Spent with Patient Time attestation: Total time spent providing and/or coordinating discharge services: Discharge coordination time: Less than 30 minutes Quality: Safe Use of Opioids Does Pt have an Active Cancer Diagnosis on the Problem List?: No Quality: Stroke Does the patient have a stroke diagnosis?: No Physical Exam Vital Signs: Vital Signs: Last Vital Signs Temp 98.1 F 03/22/22 08:00 Pulse 67 03/22/22 08:00 Resp 18 03/22/22 08:00 BP 105/57 L 03/22/22 08:00 Pulse Ox 98 03/22/22 08:00 O2 Del Method 03/22/22 08:00 O2 Flow Rate 2 03/21/22 15:42 BMI result Body Mass Index 25.0 DS: Data Data Completed and Pending Pending studies at discharge: Pending at discharge 03/21/22 14:44 Surgical [PTH] Routine Discharge Plan Discharge Patient Disposition: Home, Self-Care Discharge Diagnosis: Acute appendicitis Referrals: Rocco Mcfadden MD [Physician] - 1 Week Physician,Jorden Borges [Primary Care Provider] - 1 Week Discharge Medications: New oxycodone 5 mg tablet 5 mg PO Q6H PRN (Reason: pain (scale score 7-10)) Qty: 15 0RF Rx Instructions: Partial Fill upon patient request. Continued multivitamin Tablet 1 tab PO DAILY zinc acetate 50 mg (zinc) Capsule 50 mg PO DAILY hydrocortisone 1 % Cream 1 appl TOPICAL TID PRN (Reason: psorasis) bismuth subsalicylate [Pepto-Bismol] 262 mg/15 mL Suspension 524 mg PO Q30M PRN (Reason: gi upset) Rx Instructions: do not exceed 8 doses in a 24 hour period vitamin B complex Tablet 1 tab PO DAILY loratadine [Claritin] 10 mg Tablet 10 mg PO DAILY omega 9-tni-dky-fish oil [Fish Oil] 1,000 mg (120 mg-180 mg) Capsule 1 cap PO DAILY Probiotic 1 cap PO DAILY minoxidil 1 tab PO DAILY Discharge Orders: Discharge Order (Routine); Ordered 03/22/22 Ordered By: Rocco Mcfadden Diet: Regular diet Activity on Discharge: No heavy lifting Stand Alone Forms: Patient Portal Discharge page Activity Restrictions/Additional Instructions: No lifting > 10 pounds for 2 weeks No driving for one week Ice to the incision x 24 hours Remove dressing in 3 days Follow up in office in one week. Care Plan Goals: Return to normal activity and diet Health Concerns: Abdominal pain in the right lower quadrant Plan of Treatment: Laparoscopic appendectomy on 03/21/2022 Assessment: Acute appendicitis Patient Instructions: Laparoscopic Appendectomy (DC)
--- NOTE | 2022-03-22 14:01 | MHC.CM.PN ---
HOME - SELF CARE FAMILY TO TRANSPORT
== END 2022-03-22 15:49 | disposition home or self-care (01) | DRG 343 ==
LOC: HO.ED 03-21 02:19 → HO.EDOVER 03-21 04:12 → HO.S3 03-21 17:07
PROVIDERS: Admitting Provider Surgery; Emergency Provider Emergency Medicine; Visit Provider Surgery
PROC: 0DTJ4ZZ Resection of Appendix, Percutaneous Endoscopic Approach (ICD-10-PCS; CPT 44970; principal; 2022-03-21 13:40)
DX: K35.80 Unspecified acute appendicitis (principal); L65.9 Nonscarring hair loss, unspecified; L40.9 Psoriasis, unspecified; Z20.822 Contact with and (suspected) exposure to COVID-19; Z79.899 Other long term (current) drug therapy
CPT/HCPCS: 47562; 74174; 74177; 80053; 81003; 82248; 83690; 84484; 85025; 87635; 88304; 93005; 99285; J1100; J1170; J1885; J2250; J2270; J2405; J2543; J2795; J3010; Q9967

== ENCOUNTER 2022-05-08 08:04 | Outpatient (REF) | payer OTHER, SELFPAY ==
--- NOTE | ~2022-05-08 | XR_ITS ---
EXAMINATION: KNEE X-RAY CLINICAL INFORMATION: Pain COMPARISON: None TECHNIQUE: Standing AP view of both knees and lateral and sunrise view of the right knee FINDINGS: Right: Bone alignment is normal. No fracture or dislocation is seen. Joint spaces are normal. There is no joint effusion. Standing AP view of the left knee is unremarkable. XR/XR knee standing BI IMPRESSION: Unremarkable exam.
--- NOTE | ~2022-05-08 | XR_ITS ---
EXAMINATION: KNEE X-RAY CLINICAL INFORMATION: Pain COMPARISON: None TECHNIQUE: Standing AP view of both knees and lateral and sunrise view of the right knee FINDINGS: Right: Bone alignment is normal. No fracture or dislocation is seen. Joint spaces are normal. There is no joint effusion. Standing AP view of the left knee is unremarkable. XR/XR knee RT 2V IMPRESSION: Unremarkable exam.
== END 2022-05-08 08:05 | disposition home or self-care (01) ==
LOC: HO.HOSX 08:04
PROVIDERS: Visit Provider Physician Assistant
DX: M25.561 Pain in right knee (principal); M25.562 Pain in left knee
CPT/HCPCS: 73560; 73565

== ENCOUNTER 2022-05-22 07:22 | Outpatient (REF) | payer OTHER, SELFPAY ==
--- NOTE | ~2022-05-22 | MR_ITS ---
EXAMINATION: MR KNEE WITHOUT CONTRAST, RIGHT CLINICAL INFORMATION: Pain and subjective instability since September. COMPARISON: Right knee radiographs 05/08/2022 TECHNIQUE: Multiplanar MR images of the right knee were obtained on a high-field scanner without intravenous contrast. FINDINGS: Medial compartment: Medial meniscus is intact. No chondral loss, focal chondral defect, or osseous injury. Lateral compartment: Lateral meniscus is intact. No evidence of discoid meniscus. No chondral loss, focal chondral defect, or osseous injury. Patellofemoral compartment: No chondral loss, focal chondral defect, or osseous injury. Cruciate ligaments: Intact. Collateral ligaments: Intact. Tendons: Extensor mechanism, popliteus tendon, and pes anserine tendons are intact. Miscellaneous: Physiologic knee joint fluid. No joint effusion. No thickening or elongation of the medial patellar plica identified. No popliteal cyst. MR/MR knee RT wo con IMPRESSION: 1. No meniscal tear. 2. Intact appearance of the cruciate and collateral ligaments. 3. No chondral loss, osseous injury, or joint effusion.
== END 2022-05-22 07:23 | disposition home or self-care (01) ==
LOC: HO.MRI 07:22
PROVIDERS: Visit Provider Physician Assistant
DX: M23.91 Unspecified internal derangement of right knee (principal)
CPT/HCPCS: 73721

== ENCOUNTER 2022-06-23 10:29 | Outpatient (REF) | payer OTHER, SELFPAY ==
[2022-06-23 13:04] LABS: Syphilis Screen Nonreactive (Nonreactive)
[2022-06-23 13:12] LABS: HBS Num1 1.41 mIU/mL (0-7.99); HBc Num1 0.12 S/CO (0.00-0.79); HBsAGNum1 0.33 S/CO (0.00-0.99); HIV AB/AG Nonreactive (Nonreactive); HIV Num 1 0.06 S/CO (0.00-0.99); Hepatitis A Antibody IgM 0.11 Index (0-0.79); Hepatitis B Core Antibody Nonreactive (Nonreactive); Hepatitis B Surface Antigen Negative (Negative); ~HepC Num1 0.22 S/CO (0.00-0.79); ~Hepatitis A Antibody IgM Nonreactive (Nonreactive); ~Hepatitis B Surface Antibody NONREACTIVE (Nonreactive); ~Hepatitis C Antibody Nonreactive (Nonreactive)
[2022-06-23 18:30] LABS: CT PCR NOT DETECTED (Not Detect.); NG PCR NOT DETECTED (Not Detect.)
== END 2022-06-23 10:30 | disposition home or self-care (01) ==
LOC: HO.HMGCLDS 10:29
PROVIDERS: PCP Nurse Practitioner Family; Visit Provider Nurse Practitioner Family
DX: Z11.3 Encounter for screening for infections with a predominantly sexual mode of transmission (principal); Z11.4 Encounter for screening for human immunodeficiency virus [HIV]
CPT/HCPCS: 86704; 86706; 86709; 86780; 86803; 87340; 87389; 87491; 87591

== ENCOUNTER 2023-01-26 12:22 | Outpatient (REF) | payer OTHER, SELFPAY | END 2023-01-26 12:23 | disposition home or self-care (01) | LOC: HO.HMGCLDS 12:22 | PROVIDERS: PCP Nurse Practitioner Family; Visit Provider Nurse Practitioner Family | DX: R74.8 Abnormal levels of other serum enzymes (principal); Z13.29 Encounter for screening for other suspected endocrine disorder | CPT/HCPCS: 36415; 80053; 80061; 81003; 84443; 85025 ==

== ENCOUNTER 2023-02-16 13:16 | Outpatient (REF) | payer OTHER, SELFPAY ==
[2023-02-16 16:14] LABS: MANUAL DIFF FLAG NO
[2023-02-16 16:36] LABS: Basophils Percent Auto 0.5 % (0-2); Eosinophils Absolute Auto 0.2 X10*3/uL (0.0-0.4); Eosinophils Percent Auto 5.5 % (0-4); Hematocrit 43.9 % (42.0-52.0); Hemoglobin 14.3 g/dl (14.0-18.0); Imm Gran Abs Auto 0.01 X10*3/uL (0.00-0.03); Imm Gran Pct Auto 0.2 % (0.0-0.4); Immature Retic Fraction 5.5 % (2.3-13.4); Lymphocytes Absolute Auto 1.3 X10*3/uL (1.2-4.9); Lymphocytes Percent Auto 30.3 % (20-40); Mean Corpuscular HGB Conc 32.6 g/dl (31.0-36.0); Mean Corpuscular Hemoglobin 28.4 pg (27.0-33.0); Mean Corpuscular Volume 87.1 fL (80.0-98.0); Mean Platelet Volume 10.4 fL (9.4-12.4); Monocytes Absolute Auto 0.4 X10*3/uL (0.1-1.2); Monocytes Percent Auto 8.4 % (2-11); Neutrophils Absolute Auto 2.3 x10*3/uL (2.0-8.3); Neutrophils Percent Auto 55.1 % (45-73); Platelet Count 255 X10*3/uL (160-400); Red Blood Count 5.04 X10*6/uL (4.60-5.80); Red Cell Distribution Width 12.8 % (11.0-16.0); Retic HGB Equivalent 33.7 pg (30.0-35.0); Reticulocyte Percent 1.2 % (0.5-1.8); Reticulocytes Absolute 0.063 X10*6/uL (0.026-0.095); White Blood Count 4.2 X10*3/uL (4.8-10.8)
[2023-02-16 16:55] LABS: Alanine Aminotransferase 41 U/L (0-40); Albumin Level 4.2 g/dL (3.5-5.0); Alkaline Phosphatase 74 U/L (39-117); Anion Gap 15 (12-20); Aspartate Amino Transferase 34 U/L (5-37); Bilirubin Direct 0.4 mg/dL (0.0-0.5); Bilirubin Total 0.9 mg/dL (0.0-1.0); Blood Urea Nitrogen 22 mg/dL (9-16); Calcium 9.5 mg/dL (8.4-10.2); Carbon Dioxide 24 mmol/L (22-29); Chloride 105 mmol/L (96-108); Estimated Glomerular Filt Rate > 60; Glucose Random 74 mg/dL (60-115); Lactate Dehydrogenase 278 U/L (118-273); Potassium 4.1 mmol/L (3.3-5.1); Sodium 140 mmol/L (135-145); Total Protein 6.9 g/dL (6.5-8.0)
[2023-02-19 16:38] LABS: Haptoglobin 114 mg/dL (43-212)
== END 2023-02-16 13:17 | disposition home or self-care (01) ==
LOC: HO.HMGCLDS 13:16
PROVIDERS: PCP Nurse Practitioner Family; Visit Provider Nurse Practitioner Family
DX: R17 Unspecified jaundice (principal); D72.819 Decreased white blood cell count, unspecified
CPT/HCPCS: 36415; 80053; 82248; 83010; 83615; 85025; 85045

== ENCOUNTER 2023-08-13 09:14 | Outpatient (AMB) | payer OTHER, SELFPAY ==
--- NOTE | 2023-08-13 09:19 | MHC.OFFWIV ---
Intake Vital Signs 08/13/23 09:21 Height 5 ft 10 in Weight 187 lb 8 oz BMI 26.9 BP 118/68 Blood Pressure Location Lt brachial Position Sitting Pulse 68 Pulse Source Pulse Oximeter Temp 98.2 F Temp Source Oral Pulse Oximetry (%) 97 Intake Visit Reasons: EP Chest Congestion, Sinus [phone] Intake Note: pt is here for c/o chest congestion and sinus pressure, c/o dry cough and headache. At home covid tests have been negative and concerned about lung infection Patient Tobacco Use Status: Never used Tobacco Allergies carrot Allergy (Verified 08/13/23 09:21) Itching No Known Drug Allergies Allergy (Verified 08/13/23 09:21) Unknown pineapple Allergy (Verified 08/13/23 09:21) Itching soy Allergy (Verified 08/13/23 09:21) Itching strawberry Allergy (Verified 08/13/23 09:21) Itching Do you need a note to return to daycare/school/sports/work: No HPI HPI Comments History of Present Illness Details Patient presents to the walk in today for complaints of cough, sinus congestion, sore throat for last one week States symptoms have no improved over the last week despite taking dayquil, nyquil and other otc medications Concerned about persistent cough that is not improving. Endorses fatigue. Denies fevers, chest pain, palpitations, syncope, weakness. [facility] Medical History Alopecia Psoriasis Acute appendicitis Surgical History History of laparoscopic appendectomy (03/21/22) [place] teeth extracted History of ear surgery Social History Household Members: None Housing: Apartment Do you presently have visiting nurse or other home services: No Patient Tobacco Use Status: Never used Tobacco e-Cigarette/Vaping Use: Never Used Second Hand Smoke Exposure: No service: No Current occupational status: employed Current occupation: [employer] Current occupational exposures/hazards: No Cognitive needs: No Hearing needs: No Vision needs: No Review of Systems Const All systems reviewed & are unremarkable except as noted in HPI and below Physical Exam Vital Signs: Last Vital Signs Temp 98.2 F 08/13/23 09:21 Pulse 68 08/13/23 09:21 BP 118/68 08/13/23 09:21 Pulse Ox 97 08/13/23 09:21 BMI result Body Mass Index 26.9 General: awake, alert, oriented. Answers questions appropriately. Fully engaged in examination. Skin: warm, dry, intact HEENT: TMs intact bilaterally, without erythema or exudate. Posterior pharynx notable for post nasal drainage. Sclera without icterus or injection. Cardiac: External chest normal in appearance. Respiratory: + dry cough. LSCTAB. Abdomen: without gross distension. Neurological: Oriented to person, place, time and situation. Thought process intact. Psychiatric: Appropriate mood and affect. Good judgment and insight. Results Reviewed Results Reviewed: XR/XR chest 2V FINDINGS: There is some mild peribronchial thickening present. Otherwise, no significant abnormality is noted involving the heart, lungs, mediastinum, bony thorax or soft tissues. IMPRESSION: Mild peribronchial thickening. No focal infiltrate. Assessment & Plan Assessment & Plan (1) URI (upper respiratory infection): Code(s): J06.9 - Acute upper respiratory infection, unspecified (2) Cough: Code(s): R05.9 - Cough, unspecified Plan URI, no abx warranted. CXR completed: see above dextromethorphan-guaifenesin 10-100 mg/5 mL. 10ml Q4-6 hours as needed Rest, drink plenty of fluids, tylenol or motrin as needed. Recommend taking OTC nasal decongestants or flonase. Follow up with pcp or in clinic for any new or worsening symptoms. Go to ER for shortness of breath, chest pain, palpitations, weakness, dizziness. Orders: Orders XR chest 2V Today J06.9 - Acute upper respiratory infection, unspecified, R05.9 - Cough, unspecified Medications: New dextromethorphan-guaifenesin 10-100 mg/5 mL 10 mL PO Q4-6H PRN 500 mL 0RF cough Coding Level of Care Code Est Pt Level 4 (12390) Diagnoses URI (upper respiratory infection) J06.9 Cough R05.9
[2023-08-13 09:21] VITALS: BP 118/68; PULSE 68; TEMP 36.8; O2SAT 97; BMI 26.9
== END 2023-08-13 10:29 | disposition home or self-care (01) ==
PROVIDERS: PCP Nurse Practitioner Family; Visit Provider Registered Nurse Emergency
DX: J06.9 Acute upper respiratory infection, unspecified (principal); R05.9 Cough, unspecified
CPT/HCPCS: 99214

== ENCOUNTER 2023-08-13 10:20 | Outpatient (REF) | payer OTHER, SELFPAY ==
--- NOTE | ~2023-08-13 | XR_ITS ---
EXAMINATION: XR CHEST CLINICAL INFORMATION: Cough COMPARISON: None available. TECHNIQUE: 2 views of the chest were obtained. FINDINGS: There is some mild peribronchial thickening present. Otherwise, no significant abnormality is noted involving the heart, lungs, mediastinum, bony thorax or soft tissues. XR/XR chest 2V IMPRESSION: Mild peribronchial thickening. No focal infiltrate.
== END 2023-08-13 10:21 | disposition home or self-care (01) ==
LOC: HO.HMGCX 10:20
PROVIDERS: PCP Nurse Practitioner Family; Visit Provider Registered Nurse Emergency
DX: R05.9 Cough, unspecified (principal); J06.9 Acute upper respiratory infection, unspecified
CPT/HCPCS: 71046

== ENCOUNTER 2024-03-06 13:59 | Outpatient (AMB) | payer OTHER, SELFPAY ==
--- NOTE | 2024-03-06 14:04 | MHC.PC.OV ---
Vital Signs 03/06/24 14:06 Height 5 ft 10 in Weight 180 lb BMI 25.8 BP 120/70 Blood Pressure Location Rt brachial Position Sitting Pulse 62 Pulse Source Pulse Oximeter Pulse Oximetry (%) 98 Intake Visit Reasons: PE Intake Note: pt is here physical exam Security Systems Technician Required: No Accompanied by: Self / Same As Patient Allergies carrot Allergy (Verified 03/06/24 14:35) Itching No Known Drug Allergies Allergy (Verified 03/06/24 14:35) Unknown pineapple Allergy (Verified 03/06/24 14:35) Itching soy Allergy (Verified 03/06/24 14:35) Itching strawberry Allergy (Verified 03/06/24 14:35) Itching Medication List - Last Reconciled 03/06/24 by KARINA Hernandez [Anti-pronation orthotics Anti-pronation orthotics] ashwagandha root extract mg PO finasteride 1 mg PO DAILY ginkgo biloba 40 mg PO DAILY loratadine (Claritin) 10 mg PO DAILY [minoxidil 1 tab PO DAILY] multivitamin 1 tab PO DAILY omega 5-qhh-eaj-fish oil 1,000 mg (120 mg-180 mg) (Fish Oil) 1 cap PO DAILY [Probiotic 1 cap PO DAILY] vitamin B complex 1 tab PO DAILY zinc acetate 50 mg PO DAILY Tobacco use date assessed: 03/06/24 Dental Screening Dental Screen Date: 03/06/24 Did you have a dental visit in the last 12 months?: Yes Did you have a dental problem in the last 6 months where you did not have access to dental care?: No Was dental information given to patient?: Patient has dentist HPI PE HPI Details Pt is here for a PE. Will order labs. [facility] Medical History Alopecia Psoriasis Acute appendicitis Surgical History History of laparoscopic appendectomy (03/21/22) [place] teeth extracted History of ear surgery Social History Household Members: None Housing: Apartment Do you presently have visiting nurse or other home services: No Patient Tobacco Use Status: Never used Tobacco e-Cigarette/Vaping Use: Never Used Second Hand Smoke Exposure: No service: No Current occupational status: employed Current occupation: [employer] Current occupational exposures/hazards: No Cognitive needs: No Hearing needs: No Vision needs: No Questionnaire PHQ-9 Over the last 2 weeks, how often have you been bothered by any of the following problems? 1. Little interest or pleasure in doing things: not at all 2. Feeling down, depressed, or hopeless: not at all 3. Trouble falling or staying asleep, or sleeping too much: several days 4. Feeling tired or having little energy: not at all 5. Poor appetite or overeating: not at all 6. Feeling bad about yourself - or that you are a failure or have let yourself or your family down: not at all 7. Trouble concentrating on things, such as reading the newspaper or watching television: not at all 8. Moving or speaking so slowly that other people could have noticed. Or the opposite - being so fidgety or restless that you have been moving around a lot more than usual: not at all 9. Thoughts that you would be better off or of hurting yourself in some way: not at all Total score: 1 Depression Screening Interpretation: Negative Depression Screening Done: Yes 18259 - PHQ-9 Billing: Yes Source: Developed by Drs. Elmo Anderson, Dali Reyes, Tomás Magallon and colleagues, with an educational ellis from [employer] Thrive Questionnaire Date Thrive assessed: 03/06/24 I am a: Patient What is your living situation today?: I have a steady place to live Within the past 12 months, did the food you bought not last and you didn't have the money to get more?: Never true Within the past 12 months, did you worry whether your food would run out before you got money to buy more?: Never true Do you have trouble paying for medicines?: No Do you have trouble getting transportation to medical appointments?: No Do you have trouble paying your heating and electricity bill?: No Do you have trouble taking care of your child, family member or friend?: No Do you have trouble with day-to-day activities such as bathing, preparing meals, shopping, managing finances, etc.?: No Are you currently unemployed and looking for a job?: No Are you interested in more education?: No Please select the resources that you would like help with: None Currently or been in a relationship where the following occur: No concerns reported THRIVE Score: 0 AUDIT C Alcohol Use Questionnaire (AUDIT-C) 1. How often do you have a drink containing alcohol?: Monthly or less 2. How many drinks containing alcohol do you have on a typical day when you are drinking?: 1 or 2 3. How often do you have six or more drinks on one occasion?: Never Total Score: 1 Score Reviewed/Action Taken: Yes RIRI-7 AMB Questionnaire RIRI-7 Date RIRI - 7 assessed: 03/06/24 Feeling nervous, anxious, or on edge: 0 = Not at all Not being able to stop or control worryin = Not at all Worrying too much about different things: 0 = Not at all Trouble relaxin = Not at all Being so restless that it is hard to sit still: 0 = Not at all Becoming easily annoyed or irritable: 0 = Not at all Feeling afraid as if something awful might happen: 0 = Not at all Total RIRI-7 score (0-4 normal; 5-9 mild; 10-14 moderate; 15-21 severe): 0 Source: Developed by Drs. Elmo Anderson, Dali Reyes, Tomás Magallon and colleagues, with an educational ellis from [employer] RIRI-7 Assessment Billing RIRI-7 Assessment Tool: RIRI-7 Assessment 08767 Review of Systems Const Denies chills and Denies fever(s) Eyes Denies blurry vision ENT Denies vertigo, Denies dizziness and Denies sore throat Card Denies chest pain at rest, Denies chest pain with activity, Denies diaphoresis, Denies dyspnea and Denies dyspnea on exertion Resp Denies cough, Denies dyspnea, Denies dyspnea on exertion and Denies wheezing GI Denies abdominal pain, Denies melena, Denies hematochezia, Denies constipation, Denies diarrhea and Denies loose stools Denies hematuria Musc Denies numbness and Denies tingling Skin/Breast Denies lesions Neuro Denies vertigo, Denies dizziness, Denies numbness and Denies tingling Psych Denies anxiety, Denies depression, Denies homicidal ideation, Denies suicidal ideation and Denies other (substance abuse) Aller/Immun Denies wheezing Physical exam (Primary Care) Vital Signs: Last Vital Signs Pulse 62 03/06/24 14:06 BP 120/70 03/06/24 14:06 Pulse Ox 98 03/06/24 14:06 BMI result Body Mass Index 25.8 Tobacco/Smoking Status: Tobacco use Status Tobacco use date assessed 03/06/24 03/06/24 14:07 Patient Tobacco Use Status Never used Tobacco 03/06/24 14:05 e-Cigarette/Vaping Use Never Used 03/06/24 14:05 PHQ-9: PHQ-9 Score PHQ-9: Total score 1 03/06/24 14:28 Depression Screening Interpretation: Negative Thrive Assessment: Date of Thrive Assessment Date Thrive assessed 03/06/24 03/06/24 14:07 Currently or been in a relationship where the following occur: No concerns reported Const General: cooperative Nutritional Appearance: well nourished Orientation/consciousness: patient oriented x3 HENMT Head: Yes normal to inspection, Yes normocephalic and Yes atraumatic Ears: TM's normal bilaterally Eyes General: appearance normal, both eyes and all related structures Alignment and Position: alignment normal and position normal Neck Neck: Yes normal visual inspection and Yes no lymphadenopathy Thyroid: Thyroid normal Resp Effort & Inspection: normal respiratory effort Auscultation: clear to auscultation bilaterally Cardio Rate: regular rate Rhythm: regular rhythm Heart sounds: S1 normal heart sound present, S2 normal heart sound present and no murmurs GI Palpation (GI): Soft to palpation and nontender Auscultation: normal bowel sounds Male General Exam: Yes normal external exam Penis: normal penis Scrotum: scrotum normal, testes descended bilaterally and no inguinal hernias Testes: no testicular mass Skin Rashes: no rashes Neuro General: patient oriented x3, moves all extremities, no focal motor deficits and deep tendon reflexes 2+ bilaterally Romberg Test: Negative Psych Appearance: grossly normal Mental Status: mental status grossly normal Speech and movement: Normal speech and movement present Affect: normal affect Attitude: cooperative Thought process: Normal thought process present Thought content: Normal thought content present Insight: Good insight present (Psych) Judgement: Good judgement present (Psych) Assessment and Plan Assessment & Plan (1) Physical exam: Code(s): Z00.00 - Encounter for general adult medical examination without abnormal findings Plan: Labs ordered Plan The patient agreed to the use of a medical education specialist for this encounter. Scribed for KARINA Chung by Emmy Bower medical education specialist, on 03/06/2024 at 14:35 EST. Orders: Orders TSH reflex Free T4 Today Z00.00 - Encounter for general adult medical examination without abnormal findings Complete Blood Count Auto Diff Today Z00.00 - Encounter for general adult medical examination without abnormal findings Comprehensive [place]. Panel Fast Today Z00.00 - Encounter for general adult medical examination without abnormal findings UA CC w/rflx Micro + Cult Today Z00.00 - Encounter for general adult medical examination without abnormal findings Lipid Panel Today Z00.00 - Encounter for general adult medical examination without abnormal findings Coding Level of Care Code Est Pt Prev Care 18-39y(90134) Diagnoses Physical exam Z00.00 Additional Codes RIRI-7 Assessment Billing - RIRI-7 Assessment Tool: RIRI-7 Assessment [id number] ([id number])
[2024-03-06 14:06] VITALS: BP 120/70; PULSE 62; O2SAT 98; BMI 25.8
== END 2024-03-06 14:43 | disposition home or self-care (01) ==
PROVIDERS: PCP Nurse Practitioner Family; Visit Provider Nurse Practitioner Family
DX: Z00.00 Encounter for general adult medical examination without abnormal findings (principal)
CPT/HCPCS: 99395

== ENCOUNTER 2024-11-01 11:20 | Outpatient (REF) | payer OTHER, SELFPAY ==
[2024-11-01 13:32] LABS: MANUAL DIFF FLAG NO
[2024-11-01 13:34] LABS: Basophils Percent Auto 0.2 % (0-2); Eosinophils Absolute Auto 0.2 X10*3/uL (0.0-0.4); Eosinophils Percent Auto 5.2 % (0-4); Hematocrit 43.8 % (42.0-52.0); Hemoglobin 14.7 g/dl (14.0-18.0); Imm Gran Abs Auto 0.01 X10*3/uL (0.00-0.03); Imm Gran Pct Auto 0.2 % (0.0-0.4); Lymphocytes Absolute Auto 1.3 X10*3/uL (1.2-4.9); Lymphocytes Percent Auto 30.5 % (20-40); Mean Corpuscular HGB Conc 33.6 g/dl (31.0-36.0); Mean Corpuscular Hemoglobin 28.8 pg (27.0-33.0); Mean Corpuscular Volume 85.9 fL (80.0-98.0); Monocytes Absolute Auto 0.4 X10*3/uL (0.1-1.2); Monocytes Percent Auto 10.3 % (2-11); Neutrophils Absolute Auto 2.3 x10*3/uL (2.0-8.3); Neutrophils Percent Auto 53.6 % (45-73); Platelet Count 257 X10*3/uL (160-400); Red Cell Distribution Width 13.2 % (11.0-16.0); White Blood Count 4.3 X10*3/uL (4.8-10.8)
[2024-11-01 13:36] LABS: Appearance Urine Clear; Color Urine Yellow; Glucose Urine UA Negative (Negative); Leukocyte Esterase Urine Negative (Negative); Nitrite Urine Negative (Negative); PH 6.5 (5.0-9.0); Urine Blood Negative (Negative); Urine Ketones Negative (Negative); Urine Protein Negative (Neg-Trace)
[2024-11-01 13:56] LABS: Albumin Level 4.4 g/dL (3.5-5.0); Alkaline Phosphatase 67 U/L (39-117); Anion Gap 11 (12-20); Aspartate Amino Transferase 51 U/L (5-37); Bilirubin Total 1.3 mg/dL (0.0-1.0); Blood Urea Nitrogen 21 mg/dL (9-16); Calcium 9.4 mg/dL (8.4-10.2); Carbon Dioxide 28 mmol/L (22-29); Chloride 103 mmol/L (96-108); Cholesterol 139 mg/dL (<200); Estimated Glomerular Filt Rate > 60; Glucose Fasting 81 mg/dL (60-99); HDL Cholesterol 49 mg/dL (>40); LDL Cholesterol Calculated 83 mg/dL (<100); Potassium 3.9 mmol/L (3.3-5.1); Sodium 138 mmol/L (135-145); Total Protein 6.7 g/dL (6.5-8.0); Triglycerides 37 mg/dL (<150)
[2024-11-01 14:16] LABS: Alanine Aminotransferase 38 U/L (0-40); TSH reflex Free T4 2.24 uIU/mL (0.32-4.0)
== END 2024-11-01 11:21 | disposition home or self-care (01) ==
LOC: HO.HMGCLDS 11:20
PROVIDERS: PCP Nurse Practitioner Family; Visit Provider Nurse Practitioner Family
DX: Z00.00 Encounter for general adult medical examination without abnormal findings (principal)
CPT/HCPCS: 36415; 80053; 80061; 81003; 84443; 85025

== ENCOUNTER 2024-11-01 11:35 | Outpatient (AMB) | payer OTHER, SELFPAY ==
[2024-11-01 13:03] VITALS: BP 118/70; PULSE 66; TEMP 36.6; O2SAT 97; BMI 25.8
--- NOTE | 2024-11-01 13:03 | MHC.OFFWIV ---
Intake Vital Signs 11/01/24 13:03 Height 5 ft 10 in Weight 180 lb BMI 25.8 BP 118/70 Blood Pressure Location Lt brachial Position Sitting Pulse 66 Pulse Source Pulse Oximeter Temp 97.9 F Temp Source Oral Pulse Oximetry (%) 97 Intake Visit Reasons: EP lump under RT nipple Patient Tobacco Use Status: Never used Tobacco Allergies carrot Allergy (Verified 11/01/24 13:03) Itching No Known Drug Allergies Allergy (Verified 11/01/24 13:03) Unknown pineapple Allergy (Verified 11/01/24 13:03) Itching soy Allergy (Verified 11/01/24 13:03) Itching strawberry Allergy (Verified 11/01/24 13:03) Itching Do you need a note to return to daycare/school/sports/work: Yes HPI HPI Comments History of Present Illness Details Sid presents with a tender lump in his right breast that has been present for approximately one month. The patient, who engages in bodybuilding, first noticed the lump when it was about the size of a pea and reports that it has grown slightly larger since then. The lump is located on the right side of his chest and is described as tender, similar to the sensation of a really bad zit. Sid denies any discharge from the nipple, skin changes, redness, or other associated symptoms. He also denies any family history of breast cancer. Sid mentions that he recently completed a period of bulk eating to naturally maintain high testosterone levels as part of his bodybuilding regimen. He speculates that the hormonal changes associated with ending this dietary phase might have contributed to the development of the lump. The patient explicitly states that he does not use steroids or any similar substances. The presence of this lump has prompted Sid to seek medical attention, primarily due to concerns about potential serious underlying causes. He reports no other significant changes in his overall health status or daily functioning related to this [facility] Medical History Alopecia Psoriasis Acute appendicitis Surgical History History of laparoscopic appendectomy (03/21/22) [place] teeth extracted History of ear surgery Social History Household Members: None Housing: Apartment Do you presently have visiting nurse or other home services: No Patient Tobacco Use Status: Never used Tobacco e-Cigarette/Vaping Use: Never Used Second Hand Smoke Exposure: No service: No Current occupational status: employed Current occupation: [employer] Current occupational exposures/hazards: No Cognitive needs: No Hearing needs: No Vision needs: No Review of Systems Skin/Breast Reports new lesions Physical Exam Vital Signs: Last Vital Signs Temp 97.9 F 11/01/24 13:03 Pulse 66 11/01/24 13:03 BP 118/70 11/01/24 13:03 Pulse Ox 97 11/01/24 13:03 BMI result Body Mass Index 25.8 Const General: cooperative, healthy appearing, no acute distress and alert Orientation/consciousness: patient oriented x3 Limitations: no limitations HEENT Head: Yes normal to inspection Ears: hearing grossly normal bilaterally General nose exam: Normal external nose present Chest Other: small from nodule. In the size of a pea but smaller than a marble, subareolar right chest at the 11 o'clock position Resp Effort & Inspection: normal respiratory effort and able to speak in complete sentences Cardio Rate: regular rate Skin General skin exam: no rashes or lesions noted Neuro General: patient oriented x3 Extrem General: Yes normal to inspection Assessment & Plan Assessment & Plan (1) Nodule of anterior chest wall: Code(s): R22.2 - Localized swelling, mass and lump, trunk Plan: Right Breast Mass: - Patient reports a tender lump in the right breast that has been present for approximately one month - The mass started about the size of a pea and has grown larger - The patient denies use of steroids but mentions recent changes in diet related to bodybuilding, which he believes may have affected his hormone levels - No reported nipple discharge, skin changes, or family history of breast cancer - On examination, a palpable mass was noted in the right breast, more prominent when viewed from above - Given the recent onset, growth, and tenderness, further evaluation is warranted to rule out potential malignancy or other pathologies Plan: - Refer to primary care physician (Dr. Valiente) for further evaluation and management - Recommend ultrasound imaging of the right breast mass - Consider mammogram if deemed necessary by primary care physician - Educate patient on concerning signs to monitor: - Changes to the nipple (discoloration, skin changes, crusting, scaling, bleeding) - Nipple inversion or retraction - Nipple discharge - Follow up with primary care physician within 1-2 weeks for further evaluation and imaging results Coding Level of Care Code Est Pt Level 4 (13378) Diagnoses Nodule of anterior chest wall R22.2
== END 2024-11-01 14:04 | disposition home or self-care (01) ==
PROVIDERS: PCP Nurse Practitioner Family; Visit Provider Physician Assistant
DX: R22.2 Localized swelling, mass and lump, trunk (principal)

== ENCOUNTER 2024-12-12 08:15 | Outpatient (REF) | payer OTHER, SELFPAY ==
--- NOTE | ~2024-12-12 | US_ITS ---
EXAMINATION: MM DIAGNOSTIC DIGITAL BREAST TOMOSYNTHESIS, BILATERAL Limited ultrasound. CLINICAL INFORMATION: Right breast palpable lump and pain retroareolar. COMPARISON: Mammography: Comparison is made with relevant prior exams. TECHNIQUE: Digital breast mammography with tomosynthesis is performed in both the craniocaudal and mediolateral oblique views along with computer-aided detection (CAD). FINDINGS: Left: No suspicious calcifications masses or other abnormal findings. Right: Moderate nodular retroareolar gynecomastia. No suspicious calcifications masses or other abnormal findings. Targeted color Doppler ultrasound scanning in the retroareolar region of the right breast in the area the patient's palpable lump and pain demonstrates retroareolar nodular gynecomastia. There is no suspicious sonographic abnormal findings. Results are provided to the patient at time of visit by the technologist. US/US breast RT limited mamm only IMPRESSION: Left: Negative. Right: Moderate nodular gynecomastia. Benign. Recommend clinical evaluation and follow-up. ASSESSMENT: BI-RADS BI-RADS 2 - Benign Findings RECOMMENDATION: Clinical evaluation and followup Electronically signed by: Mesha Mattson DO 12/12/2024 09:21 AM EDT
--- NOTE | ~2024-12-12 | US_ITS ---
CLINICAL HISTORY: R74.8 - Abnormal levels of other serum enzymes US abdomen complete Comparison: None Findings: The visualized pancreas is normal. The aorta and inferior vena cava are normal caliber. The appearance of the liver suggests fatty infiltration without focal lesion. There is no intrahepatic bile duct dilatation. The common duct is 1.7 mm in diameter. The gallbladder is normal. There is no sonographic Sandoval sign. The main portal vein is antegrade. The right kidney is 11.7 cm in length. The left kidney is 11.4 cm in length. The spleen is normal. No ascites. IMPRESSION: 1. Hepatic steatosis. This document has been electronically signed by: Deniz Schultz MD on 12/12/2024 17:35:00
== END 2024-12-12 08:16 | disposition home or self-care (01) ==
LOC: HO.MAMMO 08:15
PROVIDERS: PCP Nurse Practitioner Family; Visit Provider Nurse Practitioner Family
DX: N63.11 Unspecified lump in the right breast, upper outer quadrant (principal); N62 Hypertrophy of breast; R74.8 Abnormal levels of other serum enzymes
CPT/HCPCS: 76642; 76700; 77062; 77066

== ENCOUNTER → 2024-12-12 09:00 | Outpatient (BNV) | payer OTHER, SELFPAY | PROVIDERS: PCP Nurse Practitioner Family; Visit Provider Internal Medicine | DX: N64.4 Mastodynia (principal); K76.0 Fatty (change of) liver, not elsewhere classified; N63.12 Unspecified lump in the right breast, upper inner quadrant | CPT/HCPCS: 76642; 76700; 77062; 77066 ==

== ENCOUNTER 2024-12-23 06:56 | Outpatient (AMB) | payer OTHER, SELFPAY ==
--- NOTE | 2024-12-23 07:27 | MHC.PC.OV ---
Intake Visit Reasons: Discuss test results-[employer] [phone] Allergies carrot Allergy (Verified 11/01/24 13:03) Itching No Known Drug Allergies Allergy (Verified 11/01/24 13:03) Unknown pineapple Allergy (Verified 11/01/24 13:03) Itching soy Allergy (Verified 11/01/24 13:03) Itching strawberry Allergy (Verified 11/01/24 13:03) Itching Tobacco use date assessed: 03/06/24 Dental Screening Dental Screen Date: 03/06/24 HPI Discuss test results-[employer] [phone] HPI Details History of Present Illness The patient is a 29-year-old male presenting with concerns regarding elevated liver enzymes discovered during recent laboratory testing. Approximately one month ago, the patient underwent a series of laboratory tests which revealed an elevated AST level of 51. The patient, who follows a high protein and fat diet as part of his muscle-building regimen, does not consume alcohol significantly. He regularly uses pre-workout supplements. Further evaluation was conducted through an abdominal ultrasound, which showed hepatic steatosis. The patient also has a history of leukopenia. He reports feeling generally well, with no changes in his health status and denies experiencing any acute distress symptoms such as fever or gastrointestinal issues. Current lifestyle habits, particularly dietary intake, have been reviewed further given the elevated liver enzyme results. Review of Systems - Constitutional: Denies fever. - Respiratory: Denies shortness of breath or chest pain. - Gastrointestinal: Denies abdominal pain, blood in stool, constipation, diarrhea. - Musculoskeletal: Reports dietary habits associated with high protein and fat intake due to muscle-building activities. - Hematologic: History of leukopenia. Plan The management for elevated liver enzymes involves dietary alterations and cessation of pre-workout supplements to address hepatic steatosis. Continued monitoring of liver function will occur alongside an autoimmune workup to further investigate leukopenia. Follow-up laboratory assessments will be performed, and the patient is scheduled for a follow-up appointment in two months to evaluate the effectiveness of these interventions. Discussion Notes During this visit, I reviewed the patient's laboratory results with him, emphasizing the elevated AST level and the ultrasound findings of hepatic steatosis. We discussed the likely contributors, including the high-protein, high-fat diet, and the use of pre-workout supplements. I advised discontinuing the supplements and making dietary adjustments to potentially improve liver function. I also explained the rationale for an autoimmune evaluation due to his history of leukopenia, despite previous benign assessments. The potential risks and benefits of these interventions were discussed, highlighting the importance of lifestyle changes. The patient was informed about the necessity of follow-up laboratory tests and agreed to return in two months to assess progress. Patient Instructions - Decrease intake of dietary protein and fat. - Stop using pre-workout supplements. - Return for follow-up lab work to monitor your liver function and blood cell counts. - Follow up in two months to discuss the results and any further steps. - Maintain current lifestyle practices that do not involve significant alcohol consumption. - Report any new symptoms such as fever, abdominal pain, or changes in health immediately. [facility] Medical History (Updated 12/23/24 @ 07:24 by KARINA Hernandez) Fatty liver Alopecia Psoriasis Acute appendicitis Surgical History History of laparoscopic appendectomy (03/21/22) [place] teeth extracted History of ear surgery Social History Household Members: None Housing: Apartment Do you presently have visiting nurse or other home services: No Patient Tobacco Use Status: Never used Tobacco e-Cigarette/Vaping Use: Never Used Second Hand Smoke Exposure: No service: No Current occupational status: employed Current occupation: [employer] Current occupational exposures/hazards: No Cognitive needs: No Hearing needs: No Vision needs: No Questionnaire Thrive Questionnaire Date Thrive assessed: 03/06/24 I am a: Patient What is your living situation today?: I have a steady place to live Within the past 12 months, did the food you bought not last and you didn't have the money to get more?: Never true Within the past 12 months, did you worry whether your food would run out before you got money to buy more?: Never true Do you have trouble paying for medicines?: No Do you have trouble getting transportation to medical appointments?: No Do you have trouble paying your heating and electricity bill?: No Do you have trouble taking care of your child, family member or friend?: No Do you have trouble with day-to-day activities such as bathing, preparing meals, shopping, managing finances, etc.?: No Are you currently unemployed and looking for a job?: No Are you interested in more education?: No Please select the resources that you would like help with: None Currently or been in a relationship where the following occur: No concerns reported THRIVE Score: 0 AUDIT C Alcohol Use Questionnaire (AUDIT-C) 2. How many drinks containing alcohol do you have on a typical day when you are drinking?: 1 or 2 3. How often do you have six or more drinks on one occasion?: Never Total Score: 0 RIRI-7 AMB Questionnaire RIRI-7 Date RIRI - 7 assessed: 03/06/24 Source: Developed by Drs. Elmo Anderson, Dali Reyes, Tomás Magallon and colleagues, with an educational ellis from [employer]. Physical exam (Primary Care) Tobacco/Smoking Status: Tobacco use Status Tobacco use date assessed 03/06/24 03/06/24 14:41 Patient Tobacco Use Status Never used Tobacco 11/01/24 13:03 e-Cigarette/Vaping Use Never Used 03/06/24 14:41 Thrive Assessment: Date of Thrive Assessment Date Thrive assessed 03/06/24 03/06/24 14:41 Currently or been in a relationship where the following occur: No concerns reported Telehealth Telehealth Telehealth Platform: [facility] Location of provider rendering services: practice address Location of patient: address on file Patient Identification confirmed using: Name, : Yes Telehealth method: video Patient verbally consented to treatment: Yes Patient verbally consented to billing insurance company: Yes Patient informed of any privacy concerns related to visit: Yes Minutes spent on Phone/Video with Pt.: 18 Coding Level of Care Code Tele Est Pt Level 4 (86204) Diagnoses Leukopenia D72.819 Elevated liver enzymes R74.8 Assessment & Plan Assessment & Plan (1) Leukopenia: Code(s): D72.819 - Decreased white blood cell count, unspecified Category: Medical (2) Elevated liver enzymes: Code(s): R74.8 - Abnormal levels of other serum enzymes Category: Medical Plan . Orders: Orders Smooth Muscle Antibody Today R74.8 - Abnormal levels of other serum enzymes SAMIRA Reflex Titer and Pattern Today D72.819 - Decreased white blood cell count, unspecified Lactate Dehydrogenase Today D72.819 - Decreased white blood cell count, unspecified Sjogren's Antibodies Today D72.819 - Decreased white blood cell count, unspecified Erythrocyte Sedimentation Rate Today D72.819 - Decreased white blood cell count, unspecified HIV Ab/Ag Today D72.819 - Decreased white blood cell count, unspecified Protein Electrophoresis, Serum Today D72.819 - Decreased white blood cell count, unspecified Immunofixation Pnl, Serum Today D72.819 - Decreased white blood cell count, unspecified Complete Blood Count Auto Diff Today R74.8 - Abnormal levels of other serum enzymes Hepatitis A,B,C Profile Today R74.8 - Abnormal levels of other serum enzymes Comprehensive Met. Panel Today R74.8 - Abnormal levels of other serum enzymes Rheumatoid Factor Today D72.819 - Decreased white blood cell count, unspecified Referrals General Surgery Referral N62 - Hypertrophy of breast, N63.10 - Unspecified lump in the right breast, unspecified quadrant
== END 2024-12-23 07:55 | disposition home or self-care (01) ==
LOC: HO.HMCC 06:56
PROVIDERS: PCP Nurse Practitioner Family; Visit Provider Nurse Practitioner Family
DX: D72.819 Decreased white blood cell count, unspecified (principal); R74.8 Abnormal levels of other serum enzymes

== ENCOUNTER → 2024-12-23 06:56 | Outpatient (BNVA) | payer OTHER, SELFPAY | PROVIDERS: PCP Nurse Practitioner Family; Visit Provider Nurse Practitioner Family | DX: Z13.89 Encounter for screening for other disorder (principal) ==

== ENCOUNTER 2024-12-26 14:15 | Outpatient (REF) | payer OTHER, SELFPAY ==
[2024-12-26 16:27] LABS: MANUAL DIFF FLAG NO
[2024-12-26 16:37] LABS: Basophils Percent Auto 0.3 % (0-2); Eosinophils Absolute Auto 0.2 X10*3/uL (0.0-0.4); Eosinophils Percent Auto 4.3 % (0-4); Hematocrit 41.5 % (42.0-52.0); Hemoglobin 13.6 g/dl (14.0-18.0); Imm Gran Abs Auto 0.01 X10*3/uL (0.00-0.03); Imm Gran Pct Auto 0.3 % (0.0-0.4); Lymphocytes Absolute Auto 1.1 X10*3/uL (1.2-4.9); Lymphocytes Percent Auto 28.8 % (20-40); Mean Corpuscular HGB Conc 32.8 g/dl (31.0-36.0); Mean Corpuscular Hemoglobin 28.4 pg (27.0-33.0); Mean Corpuscular Volume 86.6 fL (80.0-98.0); Monocytes Absolute Auto 0.3 X10*3/uL (0.1-1.2); Neutrophils Absolute Auto 2.1 x10*3/uL (2.0-8.3); Neutrophils Percent Auto 57.3 % (45-73); Platelet Count 262 X10*3/uL (160-400); Red Blood Count 4.79 X10*6/uL (4.60-5.80); Red Cell Distribution Width 13.4 % (11.0-16.0); White Blood Count 3.7 X10*3/uL (4.8-10.8)
[2024-12-26 16:42] LABS: Rheumatoid Factor < 13.0 IU/mL (<15.0)
[2024-12-26 17:14] LABS: Erythrocyte Sedimentation Rate 1 MM/HR (0-15)
[2024-12-26 18:06] LABS: Alanine Aminotransferase 40 U/L (0-40); Albumin Level 4.6 g/dL (3.5-5.0); Anion Gap 11 (12-20); Aspartate Amino Transferase 43 U/L (5-37); Bilirubin Total 1.1 mg/dL (0.0-1.0); Blood Urea Nitrogen 23 mg/dL (9-16); Calcium 9.4 mg/dL (8.4-10.2); Carbon Dioxide 29 mmol/L (22-29); Chloride 105 mmol/L (96-108); Estimated Glomerular Filt Rate 44; Glucose Random 98 mg/dL (60-115); Potassium 4.1 mmol/L (3.3-5.1); Sodium 141 mmol/L (135-145); Total Protein 6.5 g/dL (6.5-8.0)
[2024-12-26 18:50] LABS: Alkaline Phosphatase 67 U/L (39-117); Lactate Dehydrogenase 271 U/L (118-273)
[2024-12-27 04:20] LABS: HBS Num1 1.12 mIU/mL (0-7.99); HBc Num1 0.11 S/CO (0.00-0.79); HBsAGNum1 0.42 S/CO (0.00-0.99); HIV AB/AG Nonreactive (Nonreactive); HIV Num 1 0.07 S/CO (0.00-0.99); Hepatitis A Antibody IgM 0.15 Index (0-0.79); Hepatitis B Core Antibody Nonreactive (Nonreactive); Hepatitis B Surface Antigen Negative (Negative); ~HepC Num1 0.24 S/CO (0.00-0.79); ~Hepatitis A Antibody IgM Nonreactive (Nonreactive); ~Hepatitis B Surface Antibody NONREACTIVE (Nonreactive); ~Hepatitis C Antibody Nonreactive (Nonreactive)
[2024-12-30 20:04] LABS: Prot Elec - Albumin 4.4 g/dL (3.8-4.8); Prot Elec - Alpha1 0.2 g/dL (0.2-0.3); Prot Elec - Alpha2 0.5 g/dL (0.5-0.9); Prot Elec - Beta 1 0.3 g/dL (0.4-0.6); Prot Elec - Beta 2 0.2 g/dL (0.2-0.5); Prot Elec - Gamma 0.8 g/dL (0.8-1.7); Prot Elec - Total Protein 6.5 g/dL (6.1-8.1)
[2024-12-30 22:29] LABS: Antibody to SS-A Antigen <1.0 NEG AI (<1.0 NEG); Antibody to SS-B Antigen <1.0 NEG AI (<1.0 NEG)
[2024-12-31 07:09] LABS: Smooth Muscle Antibody <20 U (<20)
[2024-12-31 10:09] LABS: Anti Nuclear Antibody Screen POSITIVE (NEGATIVE)
[2024-12-31 12:49] LABS: IgA 127 mg/dL (47-310); IgG 919 mg/dL (600-1640); IgM 128 mg/dL (50-300)
== END 2024-12-26 14:16 | disposition home or self-care (01) ==
LOC: HO.HMGCLDS 14:15
PROVIDERS: PCP Nurse Practitioner Family; Visit Provider Nurse Practitioner Family
DX: D72.819 Decreased white blood cell count, unspecified (principal); R74.8 Abnormal levels of other serum enzymes
CPT/HCPCS: 36415; 80053; 82784; 83615; 84165; 85025; 85652; 86015; 86038; 86039; 86235; 86334; 86431; 86704; 86706; 86709; 86803; 87340; 87389

== ENCOUNTER 2025-01-16 09:12 | Outpatient (AMB) | payer OTHER, SELFPAY ==
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
== END 2025-01-16 09:39 | disposition home or self-care (01) ==
LOC: HO.HGS 09:12
PROVIDERS: PCP Nurse Practitioner Family; Visit Provider Surgery
DX: N63.41 Unspecified lump in right breast, subareolar (principal); N62 Hypertrophy of breast
CPT/HCPCS: 99214

== ENCOUNTER 2025-01-16 09:12 | Outpatient (REF) | payer OTHER, SELFPAY ==
[2025-01-16 13:01] LABS: MANUAL DIFF FLAG NO
[2025-01-16 13:11] LABS: Basophils Percent Auto 0.5 % (0-2); Eosinophils Absolute Auto 0.4 X10*3/uL (0.0-0.4); Eosinophils Percent Auto 9.5 % (0-4); Hematocrit 40.8 % (42.0-52.0); Hemoglobin 13.8 g/dl (14.0-18.0); Immature Retic Fraction 4.3 % (2.3-13.4); Lymphocytes Absolute Auto 1.1 X10*3/uL (1.2-4.9); Lymphocytes Percent Auto 31.1 % (20-40); Mean Corpuscular HGB Conc 33.8 g/dl (31.0-36.0); Mean Corpuscular Volume 85.7 fL (80.0-98.0); Mean Platelet Volume 10.4 fL (9.4-12.4); Monocytes Absolute Auto 0.4 X10*3/uL (0.1-1.2); Monocytes Percent Auto 9.5 % (2-11); Neutrophils Absolute Auto 1.8 x10*3/uL (2.0-8.3); Neutrophils Percent Auto 49.4 % (45-73); Platelet Count 257 X10*3/uL (160-400); Red Blood Count 4.76 X10*6/uL (4.60-5.80); Red Cell Distribution Width 13.3 % (11.0-16.0); Retic HGB Equivalent 33.1 pg (30.0-35.0); Reticulocyte Percent 1.2 % (0.5-1.8); Reticulocytes Absolute 0.055 X10*6/uL (0.026-0.095); White Blood Count 3.7 X10*3/uL (4.8-10.8)
[2025-01-16 13:52] LABS: Alanine Aminotransferase 41 U/L (0-40); Albumin Level 4.4 g/dL (3.5-5.0); Alkaline Phosphatase 59 U/L (39-117); Anion Gap 11 (12-20); Aspartate Amino Transferase 39 U/L (5-37); Bilirubin Total 0.9 mg/dL (0.0-1.0); Blood Urea Nitrogen 26 mg/dL (9-16); Calcium 9.1 mg/dL (8.4-10.2); Carbon Dioxide 28 mmol/L (22-29); Chloride 104 mmol/L (96-108); Estimated Glomerular Filt Rate > 60; Ferritin 244 ng/mL (20-250); Iron 74 mcg/dL (45-160); Lactate Dehydrogenase 303 U/L (118-273); Percent Iron Saturation 33 % (15-50); Sodium 139 mmol/L (135-145); Total Iron Binding Capacity 221 mcg/dL (228-428); Total Protein 6.6 g/dL (6.5-8.0); Unsaturated Iron Binding 147 ug/dL
[2025-01-16 13:59] LABS: Rheumatoid Factor < 13.0 IU/mL (<15.0)
[2025-01-16 14:05] LABS: Glucose Random 54 mg/dL (60-115)
[2025-01-16 14:30] LABS: Folate 7.7 ng/mL (> or = 4.0); Vitamin B12 644 pg/mL (200-900)
== END 2025-01-16 09:13 | disposition home or self-care (01) ==
LOC: HO.HMGCLDS 09:12
PROVIDERS: PCP Nurse Practitioner Family; Visit Provider Nurse Practitioner Family
DX: N63.41 Unspecified lump in right breast, subareolar (principal); N62 Hypertrophy of breast; D64.9 Anemia, unspecified; R76.8 Other specified abnormal immunological findings in serum
CPT/HCPCS: 36415; 80053; 82607; 82728; 82746; 83540; 83615; 85025; 85045; 86431

== ENCOUNTER 2025-03-09 15:39 | Outpatient (AMB) | payer OTHER, SELFPAY ==
[2025-03-09 15:44] VITALS: BP 102/68; PULSE 58; RESP 16; TEMP 36.8; O2SAT 99; BMI 24.5
--- NOTE | 2025-03-09 15:44 | A.OFFPC_ITS ---
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 Accompanied by: Self / Same As Patient Allergies carrot Allergy (Verified 03/09/25 15:45) Itching No Known Drug Allergies Allergy (Verified 03/09/25 15:45) Unknown pineapple Allergy (Verified 03/09/25 15:45) Itching soy Allergy (Verified 03/09/25 15:45) Itching strawberry Allergy (Verified 03/09/25 15:45) Itching Medication List - Last Reconciled 03/09/25 by CHARISSA Hernandez-BC [Anti-pronation orthotics Anti-pronation orthotics] finasteride 1 mg PO DAILY [minoxidil 1 tab PO DAILY] Tobacco use date assessed: 03/06/24 Dental Screening Dental Screen Date: 03/06/24 HPI PE *LVM unable 03/06 DCR HPI Details History of Present Illness The patient is a 29-year-old male presenting with a physical examination and evaluation of leukopenia and anemia. He has been experiencing leukopenia and slight anemia, for which he was referred to hematology. The hematology evaluation is ongoing, and further results are pending. Additionally, the patient has elevated liver enzymes, which may be related to supplements he is taking for muscle development. He denies the use of steroids or testosterone supplements but reports using creatinine and whey protein. The plan includes rechecking the complete blood count and liver enzymes, with fasting required before lab tests. Health Maintenance Social History - Exercise: Engages in muscle developmen t activities - Substance Use: Denies use of steroids or testosterone supplements - Nutritional Supplements: Reports using creatinine and whey protein Review of Systems Physical Exam General: Cooperative, healthy appearing, comfortable, no acute distress and well developed Orientation: Patient oriented x3 Limitations: No limitations Head: Normal to inspection Ears: Hearing grossly normal bilaterally Nose: Normal external nose present Face and sinus: Normal facial exam Eyes: Appearance normal, both eyes and all related structures Neck: Normal visual inspection and Yes full ROM Respiratory: Normal respiratory effort and able to speak in complete sentences. Clear to auscultation bilaterally Cardiovascular: Regular rate and rhythm. Normal S1 and S2 GI: Normal to inspection. Soft to palpation and nontender : testicles without masses/lesions and no hernias appreciated Skin: No rashes or lesions noted Neuro: Patient oriented x3 Extremities: Normal to inspection Results Plan The plan includes rechecking the complete blood count and liver enzymes to monitor the patient's leukopenia, anemia, and elevated liver enzymes. The patien t is advised to fast before undergoing these lab tests to ensure accurate results. Further evaluation by hematology is pending, and the patient will continue to be monitored for any changes in his condition. Patient Instructions - Fast before lab tests to ensure accura te results. - Follow up with hematology for further evaluation. [facility] Medical History Fatty liver Alopecia Psoriasis Acute appendicitis Surgical History History of laparoscopic appendectomy (03/21/22) [place] teeth extracted History of ear surgery Social History Household Members: None Housing: Apartment Do you presently have visiting nurse or other home services: No Patient Tobacco Use Status: Never used Tobacco e-Cigarette/Vaping Use: Never Used Second Hand Smoke Exposure: No service: No Current occupational status: employed Current occupation: [employer] Current occupational exposures/hazards: No Cognitive needs: No Hearing needs: No Vision needs: No Questionnaire PHQ-9 Over the last 2 weeks, how often have you been bothered by any of the following problems? 1. Little interest or pleasure in doing things: not at all 2. Feeling down, depressed, or hopeless: not at all 3. Trouble falling or staying asleep, or sleeping too much: not at all 4. Feeling tired or having little energy: not at all 5. Poor appetite or overeating: not at all 6. Feeling bad about yourself - or that you are a failure or have let yourself or your family down: not at all 7. Trouble concentrating on things, such as reading the newspaper or watching television: not at all 8. Moving or speaking so slowly that other people could have noticed. Or the opposite - being so fidgety or restless that you have been moving around a lot more than usual: not at all 9. Thoughts that you would be better off or of hurting yourself in some way: not at all Total score: 0 Depression Screening Interpretation: Negative Depression Screening Done: Yes 61899 - PHQ-9 Billing: Yes Source: Developed by Drs. Elmo Anderson, Dali Reyes, Tomás Magallon and colleagues, with an educational ellis from [employer]. Thrive Questionnaire Date Thrive assessed: 03/02/25 I am a: Patient What is your living situation today?: I have a steady place to live Within the past 12 months, did the food you bought not last and you didn't have the money to get more?: Never true Within the past 12 months, did you worry whether your food would run out before you got money to buy more?: Never true Do you have trouble paying for medicines?: No Do you have trouble getting transportation to medical appointments?: No Do you have trouble paying your heating and electricity bill?: No Do you have trouble taking care of your child, family member or friend?: No Do you have trouble with day-to-day activities such as bathing, preparing meals, shopping, managing finances, etc.?: No Are you currently unemployed and looking for a job?: No Are you interested in more education?: No Please select the resources that you would like help with: None Currently or been in a relationship where the following occur: No concerns reported THRIVE Score: 0 AUDIT C Alcohol Use Questionnaire (AUDIT-C) 1. How often do you have a drink containing alcohol?: Monthly or less Total Score: 1 RIRI-7 AMB Questionnaire RIRI-7 Date RIRI - 7 assessed: 03/09/25 Feeling nervous, anxious, or on edge: 1 = Several days Not being able to stop or control worryin = Several days Worrying too much about different things: 1 = Several days Trouble relaxin = Several days Being so restless that it is hard to sit still: 1 = Several days Becoming easily annoyed or irritable: 0 = Not at all Feeling afraid as if something awful might happen: 0 = Not at all Total RIRI-7 score (0-4 normal; 5-9 mild; 10-14 moderate; 15-21 severe): 5 Source: Developed by Drs. Elmo Anderson, Dali Reyes, Tomás Magallon and colleagues, with an educational ellis from [employer]. RIRI-7 Assessment Billing RIRI-7 Assessment Tool: RIRI-7 Assessment 16933 Physical exam (Primary Care) Vital Signs: Last Vital Signs Temp 98.3 F 03/09/25 15:44 Pulse 58 03/09/25 15:44 Resp 16 03/09/25 15:44 BP 102/68 03/09/25 15:44 Pulse Ox 99 03/09/25 15:44 BMI result Body Mass Index 24.5 Tobacco/Smoking Status: Tobacco use Status Tobacco use date assessed 03/06/24 03/09/25 15:48 Patient Tobacco Use Status Never used Tobacco 03/09/25 15:48 e-Cigarette/Vaping Use Never Used 03/09/25 15:48 PHQ-9: PHQ-9 Score PHQ-9: Total score 0 03/09/25 15:48 Depression Screening Interpretation: Negative Thrive Assessment: Date of Thrive Assessment Date Thrive assessed 03/02/25 03/09/25 15:48 Currently or been in a relationship where the following occur: No concerns reported Coding Level of Care Code Est Pt Prev Care 18-39y(13978) Diagnoses Physical exam Z00. Additional Codes RIRI-7 Assessment Billing - RIRI-7 Assessment Tool: RIRI-7 Assessment 94178 ([id number]) PHQ-9 - 58231 - PHQ-9 Billing: Yes ([id number]) Assessment & Plan Assessment & Plan (1) Physical exam: Code(s): Z00.00 - Encounter for general adult medical examination without abnormal findings Category: Medical Plan . Orders: Orders Comprehensive [place]. Panel Fast Today Z00.00 - Encounter for general adult medical examination without abnormal findings TSH reflex Free T4 Today Z00.00 - Encounter for general adult medical examination without abnormal findings Lipid Panel Today Z00.00 - Encounter for general adult medical examination without abnormal findings Complete Blood Count Auto Diff Today Z00.00 - Encounter for general adult medical examination without abnormal findings UA CC w/rflx Micro + Cult Today Z00.00 - Encounter for general adult medical examination without abnormal findings
== END 2025-03-09 16:13 | disposition home or self-care (01) ==
LOC: HO.HMCC 15:40
PROVIDERS: PCP Nurse Practitioner Family; Visit Provider Nurse Practitioner Family
DX: Z00.00 Encounter for general adult medical examination without abnormal findings (principal)

== ENCOUNTER → 2025-03-09 15:39 | Outpatient (BNVA) | payer OTHER, SELFPAY | PROVIDERS: PCP Nurse Practitioner Family; Visit Provider Nurse Practitioner Family | DX: Z00.00 Encounter for general adult medical examination without abnormal findings (principal); D64.9 Anemia, unspecified; R79.89 Other specified abnormal findings of blood chemistry; D72.819 Decreased white blood cell count, unspecified | CPT/HCPCS: 96127 ==

== ENCOUNTER 2025-03-20 10:33 | Outpatient (REF) | payer OTHER, SELFPAY ==
[2025-03-20 13:34] LABS: MANUAL DIFF FLAG NO
[2025-03-20 13:38] LABS: Hematocrit 43.9 % (42.0-52.0); Hemoglobin 14.4 g/dl (14.0-18.0); Imm Gran Abs Auto 0.01 X10*3/uL (0.00-0.03); Imm Gran Pct Auto 0.2 % (0.0-0.4); Lymphocytes Absolute Auto 1.3 X10*3/uL (1.2-4.9); Mean Corpuscular HGB Conc 32.8 g/dl (31.0-36.0); Mean Corpuscular Hemoglobin 28.9 pg (27.0-33.0); Mean Corpuscular Volume 88.2 fL (80.0-98.0); NRBC Abs Auto 0.000 X10*3/uL (0.0-0.012); NRBC Pct Auto 0.0 /100WBC (0.0-0.2); Platelet Count 244 X10*3/uL (160-400); Red Blood Count 4.98 X10*6/uL (4.60-5.80); Reticulocytes Absolute 0.076 X10*6/uL (0.026-0.095); White Blood Count 4.7 X10*3/uL (4.8-10.8)
[2025-03-20 13:53] LABS: Appearance Urine Clear; Glucose Urine UA Negative (Negative); PH 7.5 (5.0-9.0); Specific Gravity - Urine 1.010 (1.005-1.025)
[2025-03-20 14:03] LABS: Alanine Aminotransferase 34 U/L (0-40); Albumin Level 4.8 g/dL (3.5-5.0); Alkaline Phosphatase 64 U/L (39-117); Anion Gap 11 (12-20); Aspartate Amino Transferase 56 U/L (5-37); Blood Urea Nitrogen 20 mg/dL (9-16); Calcium 9.5 mg/dL (8.4-10.2); Carbon Dioxide 30 mmol/L (22-29); Chloride 104 mmol/L (96-108); Cholesterol 160 mg/dL (<200); Estimated Glomerular Filt Rate > 60; HDL Cholesterol 61 mg/dL (>40); Iron 118 mcg/dL (45-160); Percent Iron Saturation 45 % (15-50); Potassium 4.0 mmol/L (3.3-5.1); Sodium 141 mmol/L (135-145); Total Iron Binding Capacity 265 mcg/dL (228-428); Total Protein 7.1 g/dL (6.5-8.0); Triglycerides 43 mg/dL (<150); Unsaturated Iron Binding 147 ug/dL
[2025-03-20 14:13] LABS: Ferritin 221 ng/mL (20-250)
[2025-03-20 14:25] LABS: Folate 7.2 ng/mL (> or = 4.0); Vitamin B12 569 pg/mL (200-900)
== END 2025-03-20 10:34 | disposition home or self-care (01) ==
LOC: HO.HMGCLDS 10:33
PROVIDERS: PCP Nurse Practitioner Family; Visit Provider Nurse Practitioner Family
DX: Z00.00 Encounter for general adult medical examination without abnormal findings (principal); D64.9 Anemia, unspecified; R74.8 Abnormal levels of other serum enzymes
CPT/HCPCS: 36415; 80053; 80061; 81003; 82607; 82728; 82746; 83540; 83615; 84443; 85025; 85045

== ENCOUNTER 2025-05-15 10:48 | Outpatient (REF) | payer OTHER, SELFPAY ==
[2025-05-15 14:15] LABS: Alanine Aminotransferase 38 U/L (0-40); Albumin Level 4.7 g/dL (3.5-5.0); Alkaline Phosphatase 67 U/L (39-117); Anion Gap 11 (12-20); Aspartate Amino Transferase 39 U/L (5-37); Blood Urea Nitrogen 18 mg/dL (9-16); Calcium 9.4 mg/dL (8.4-10.2); Carbon Dioxide 30 mmol/L (22-29); Chloride 103 mmol/L (96-108); Estimated Glomerular Filt Rate > 60; Potassium 4.0 mmol/L (3.3-5.1); Sodium 140 mmol/L (135-145); Total Protein 7.0 g/dL (6.5-8.0)
== END 2025-05-15 10:49 | disposition home or self-care (01) ==
LOC: HO.HMGCLDS 10:48
PROVIDERS: PCP Nurse Practitioner Family; Visit Provider Nurse Practitioner Family
DX: R74.8 Abnormal levels of other serum enzymes (principal)
CPT/HCPCS: 36415; 80053

== ENCOUNTER 2025-05-27 06:42 | Outpatient (AMB) | payer OTHER, SELFPAY ==
--- NOTE | 2025-05-27 07:40 | A.OFFPC_ITS ---
Intake Visit Reasons: Auto Immu Allergies carrot Allergy (Verified 03/09/25 15:45) Itching No Known Drug Allergies Allergy (Verified 03/09/25 15:45) Unknown pineapple Allergy (Verified 03/09/25 15:45) Itching soy Allergy (Verified 03/09/25 15:45) Itching strawberry Allergy (Verified 03/09/25 15:45) Itching Tobacco use date assessed: 03/06/24 Dental Screening Dental Screen Date: 03/06/24 HPI Auto Immu HPI Details Chief Complaint The patient presents for a health follow-up for fatty liver. History of Present Illness The patient is a 29-year-old male presenting for a health follow-up for fatty liver. His liver enzymes have started to trend down, which is most likely attributed to discontinuing many supplements he was taking for muscle building. The patient has a history of psoriasis and alopecia. He also reports a significant family history of autoimmune disorders, although he does not know the specifics. A previous antinuclear antibody (LINDA) test was positive. Social History - Substance Use: The patient has discont inued many supplements previously used for muscle development. - Exercise: He is focused on muscle deve lopment and building. Health Maintenance - Will continue to monitor labs for live r enzymes. - A repeat abdominal ultrasound is plann ed for approximately six months from now to re-evaluate fatty liver. Review of Systems - Constitutional: Reports doing quite we ll overall. - Cardiovascular: Denies chest pain. - Respiratory: Denies shortness of breat h. - Gastrointestinal: Denies abdominal netta n, blood in stool, constipation, or diarrhea. - Integumentary: History of psoriasis an d alopecia. - All other systems: Denies any other sp ecific symptoms. Physical Exam A+ox3 no acute distress noted Results - Labs: Liver enzymes are trending down. - Labs: A previous antinuclear antibody (LINDA) test was positive. Plan Patient was informed and verbally consented to the use of an ambient scribe for clinic note documentation during this visit. 1. Fatty Liver And Elevated Liver Enzyme s The patient's liver enzymes are improving and trending downward, which is thought to be a result of him discontinuing numerous supplements. The plan is to continue monitoring his labs and to repeat an abdominal ultrasound in approximately six months. 2. Positive Linda And Family History Of Au toimmune Disorders The patient has a history of a positive LINDA, psoriasis, alopecia, and a significant but unspecified family history of autoimmune disorders. Despite these factors, he denies any specific rheumatologic symptoms. He has been instructed to investigate his family history further, and his case will be reviewed by a rheumatology team. Discussion Notes I discussed with the patient that his liver enzymes are showing an impressive downward trend, and we suspect this is primarily due to the discontinuation of his supplements. I advised that we will continue monitoring his labs and will repeat an abdominal ultrasound in approximately six months. We also discussed his positive LINDA result and significant family history of autoimmune disease. Although he is denying specific symptoms, I recommended a review of his case by the rheumatology team and asked him to gather more specific details about his family's health history. Patient Instructions - Continue to avoid the supplements you have stopped taking, as they are likely the cause of your liver issues. - You will need to continue getting your blood work checked to monitor your liver. - We will schedule another abdominal ult rasound in about 6 months. - Please try to get more specific inform ation about the autoimmune diseases that run in your family. - A specialist in autoimmune diseases (r heumatology) will review your case. [facility] Medical History (Updated 05/22/25 @ 21:16 by KARINA Hernandez) Fatty liver Alopecia Psoriasis Acute appendicitis Surgical History History of laparoscopic appendectomy (03/21/22) [place] teeth extracted History of ear surgery Social History Household Members: None Housing: Apartment Do you presently have visiting nurse or other home services: No Patient Tobacco Use Status: Never used Tobacco e-Cigarette/Vaping Use: Never Used Second Hand Smoke Exposure: No service: No Current occupational status: employed Current occupation: [employer] Current occupational exposures/hazards: No Cognitive needs: No Hearing needs: No Vision needs: No Questionnaire Thrive Questionnaire Date Thrive assessed: 03/02/25 I am a: Patient What is your living situation today?: I have a steady place to live Within the past 12 months, did the food you bought not last and you didn't have the money to get more?: Never true Within the past 12 months, did you worry whether your food would run out before you got money to buy more?: Never true Do you have trouble paying for medicines?: No Do you have trouble getting transportation to medical appointments?: No Do you have trouble paying your heating and electricity bill?: No Do you have trouble taking care of your child, family member or friend?: No Do you have trouble with day-to-day activities such as bathing, preparing meals, shopping, managing finances, etc.?: No Are you currently unemployed and looking for a job?: No Are you interested in more education?: No Please select the resources that you would like help with: None Currently or been in a relationship where the following occur: No concerns reported THRIVE Score: 0 RIRI-7 AMB Questionnaire RIRI-7 Date RIRI - 7 assessed: 03/09/25 Source: Developed by Drs. Elmo Anderson, Dali Reyes, Tomás Magallon and colleagues, with an educational ellis from [employer]. Physical exam (Primary Care) Tobacco/Smoking Status: Tobacco use Status Tobacco use date assessed 03/06/24 03/09/25 15:48 Patient Tobacco Use Status Never used Tobacco 03/09/25 15:48 e-Cigarette/Vaping Use Never Used 03/09/25 15:48 Thrive Assessment: Date of Thrive Assessment Date Thrive assessed 03/02/25 03/09/25 15:48 Currently or been in a relationship where the following occur: No concerns reported Telehealth Telehealth Telehealth Platform: [facility] Location of provider rendering services: practice address Location of patient: address on file Patient Identification confirmed using: Name, : Yes Telehealth method: video Patient verbally consented to treatment: Yes Patient verbally consented to billing insurance company: Yes Patient informed of any privacy concerns related to visit: Yes Minutes spent on Phone/Video with Pt.: 15 Coding Level of Care Code Tele Est Pt Level 3 (45885) Diagnoses Elevated liver enzymes R74.8 LINDA positive R76.8 Assessment & Plan Assessment & Plan (1) Elevated liver enzymes: Code(s): R74.8 - Abnormal levels of other serum enzymes Category: Medical (2) LINDA positive: Code(s): R76.8 - Other specified abnormal immunological findings in serum Category: Medical Plan , Orders: Orders Complete Blood Count Auto Diff Today K76.0 - Fatty (change of) liver, not elsewhere classified Comprehensive Met. Panel Today K76.0 - Fatty (change of) liver, not elsewhere classified TSH reflex Free T4 Today K76.0 - Fatty (change of) liver, not elsewhere classified Referrals Rheumatology Referral R76.8 - Other specified abnormal immunological findings in serum
== END 2025-05-27 08:45 | disposition home or self-care (01) ==
LOC: HO.HMCC 06:42
PROVIDERS: PCP Nurse Practitioner Family; Visit Provider Nurse Practitioner Family
DX: R74.8 Abnormal levels of other serum enzymes (principal); R76.89 Other specified abnormal immunological findings in serum